=== PATIENT | male | born 1945 | race Caucasian/White ===

== ENCOUNTER 2017-08-24 23:12 | Observation (INO) | payer MEDICARE ==
[2017-08-25] MEDS ORDERED: Labetalol HCl 100 MG/20 ML VIAL ONE (01:47)
[2017-08-25 02:03] LABS: Troponin I 0.015 ng/mL (< 0.028)
[2017-08-25] MEDS ORDERED: Ondansetron HCl/PF 4 MG/2 ML Vial IVP PRN (03:07)
[2017-08-25] MEDS ORDERED: Ondansetron ODT 4 MG TAB SL PRN (03:07)
[2017-08-25] MEDS ORDERED: Sodium Chloride 0.9% 1,000 ML IV SCH (03:07)
[2017-08-25] MEDS: Acetaminophen 325 MG TAB PO PRN ×2 (04:20→11:57)
[2017-08-25 05:03] VITALS: BMI 22.0
[2017-08-25 05:06] LABS: Troponin I 0.012 ng/mL (< 0.028)
[2017-08-25] MEDS ORDERED: HYDROcodone/Acetaminophen 5/325 mg Tablet PO PRN (05:07)
[2017-08-25] MEDS ORDERED: Acetaminophen/Codeine 30-300mg Tablet PO PRN (05:08)
[2017-08-25] MEDS ORDERED: Cyclobenzaprine 10 MG TAB PO PRN (05:08)
--- NOTE | 2017-08-25 05:11 | PDOC.EVN ---
Event Note - Event Note Event Note: [id number] H&p dictated 1. falls 2. ENCEPHALOPATHY 3. h/o htn 4. dm type 2 plan: see orders
--- NOTE | 2017-08-25 06:59 | HP ---
DATE OF ADMISSION: 08/24/2017 CHIEF COMPLAINT: Altered mental status, history of falls. HISTORY OF PRESENT ILLNESS: The patient is a 72-year-old male with past medical history of polio, s troke, dementia, Parkinson's disease, diabetes mellitus type 2, hypertension, who came to outside ER because of the fall and confusion. History is obtained from the ER physician, ER notes and from th e patient's outside records as there is no family available at this time. According to them, the pa tient was having confusion for the past few days and patient was having falls also. The patient had a fall yesterday and did hit his head, but denies any loss of consciousness, denies any chest pain, denies any nausea, vomiting. Patient denies any chest pain, denies any trouble breathing. Patient went to outside ER, because of the worsening confusion. The patient was transferred here for neuro eval. Denies any chest pain, denies any dizziness at this time. PAST MEDICAL HISTORY: As per HPI. PAST SURGICAL HISTORY: Foot surgery, knee surgery, vasectomy. SOCIAL HISTORY: Denies smoking, denies alcohol, denies any drugs. FAMILY HISTORY: Denies any heart problems. REVIEW OF SYSTEMS: Constitutional: Denies any fever, denies any chills. Eyes: No vision problems. Ears: Denies any hearing loss. Neck: Denies any neck pain. Cardiovascular System: Denies any chest pain, denies any palpitations. Cranial Nerves System: Pos itive for confusion. Psychiatric: Denies depression, anxiety. Integument: Denies any rash. All other review of systems are reviewed and are negative. PHYSICAL EXAMINATION: CONSTITUTIONAL/VITAL SIGNS: At the time of H\T\P performed, blood pressure 130/70, 97% on room air. GENERAL: The patient appears tired. HEENT: Anterior nares patent. Nose normal. Ears normal. Teeth intact. Tongue is moist. NECK: Supple. No JVD. CARDIOVASCULAR SYSTEM: S1, S2 present. Regular rate and rhythm, no murmurs, no rubs, no gallops. RESPIRATORY SYSTEM: No wheezing, no rhonchi. Breath sounds bilaterally. GASTROINTESTINAL: Abdomen is soft, nontender, no guarding, no organomegaly, no masses felt. MUSCULOSKELETAL: No edema. INTEGUMENTARY: No rashes seen. CRANIAL NERVE SYSTEM: Awake, follows commands. Strength intact, sensory intact. PSYCHIATRIC: Mood appropriate at this time. LABORATORY DATA: At the time of H\T\P performed, sodium 140, potassium 4.3, chloride 103, CO2 23, B UN of 24, creatinine 0.8, glucose 289, AST 16, ALT 21, alkaline phosphatase 82, troponin less than 0 .010, CK-MB is 7.7. Urine, 7-10 RBCs. Urine casts present. seen. White count 7.6, hemoglob in 15.1, platelet count 255. ASSESSMENT AND PLAN: The patient is a 72-year-old male: 1. Falls, plan to check 25-hydroxy vitamin D and also we will get PT, OT, ST available. Monitor th e patient closely. 2. History of dementia plus encephalopathy, might be secondary to worsening dementia. We will get neuro evaluation and monitor the patient closely. We will get MRI brain also. 3. History of hypertension. Monitor blood pressure. Continue home blood pressure medications. 4. History of diabetes mellitus type 2. Monitor blood sugars. We will do insulin sliding scale. 5. History of dementia. Continue home medications. The case was discussed in detail with the patient.
[2017-08-25] MEDS ORDERED: Alogliptin Benzoate 25 MG TABLET PO SCH (09:00)
[2017-08-25] MEDS ORDERED: Aspirin 325 mg Enteric Coated Tablet PO SCH (09:00)
[2017-08-25] MEDS ORDERED: Amlodipine 5 MG TAB PO SCH (09:09)
[2017-08-25] MEDS ORDERED: Amlodipine 10 MG TAB PO SCH (09:15)
--- NOTE | 2017-08-25 09:15 | PDOC.PN ---
- Subjective Encounter Start Date: 08/25/17 Encounter Start Time: 09:13 Patient seen at bedside. No overnight events, no new complaints. - Objective MAR Reviewed: Yes Vital Signs & Weight: Vital Signs (12 hours) Temp Pulse Resp BP BP Pulse Ox 08/25/17 07:40 98.6 F 89 18 08/25/17 07:20 98.6 F 89 18 175/80 H 95 08/25/17 03:33 98.5 F 92 20 175/95 H 96 Weight Weight 167 lb 1.6 oz I&O: 08/24/17 08/25/17 08/26/17 06:59 06:59 06:59 Intake Total 940 Output Total 2 Balance 938 Phys Exam - Physical Examination Constitutional: NAD HEENT: moist MMs Neck: no JVD Respiratory: no rales, clear to auscultation bilateral Cardiovascular: RRR Gastrointestinal: soft Musculoskeletal: pulses present Neurological: moves all 4 limbs Psychiatric: A&O x 3 Deviation from normal: Flat affect Skin: no rash Dx/Plan (1) Falls Code(s): W19.XXXA - UNSPECIFIED FALL, INITIAL ENCOUNTER Status: Acute (2) Altered mental status Code(s): R41.82 - ALTERED MENTAL STATUS, UNSPECIFIED Status: Resolved (3) Hypertension Code(s): I10 - ESSENTIAL (PRIMARY) HYPERTENSION Status: Chronic (4) Dementia Code(s): F03.90 - UNSPECIFIED DEMENTIA WITHOUT BEHAVIORAL DISTURBANCE Status: Suspected Qualifiers: Dementia type: Alzheimer's disease - Plan cont current plan of care, PT/OT, social media coordinator, out of bed/ambulate, DVT proph w/SCDs * Increase Norvasc to 10 mg Daily. * D/C IV fluids * PT/OT * Altered Mental status has improved. This may be a manifestation of worsening of his underlying dementia. MRI pending.Neurology consult requested. * CM for safe disposition * Neuro checks
[2017-08-25] MEDS: Tamsulosin HCl 0.4 MG CAP PO SCH ×2 (09:52→20:59)
[2017-08-25] MEDS: Aspirin 81 mg Enteric Coated Tablet PO SCH (09:52)
[2017-08-25] MEDS: Glimepiride 2 MG TAB PO SCH (09:52)
[2017-08-25] MEDS: Famotidine 20 MG TAB PO SCH ×2 (09:52→21:00)
[2017-08-25] MEDS: Amlodipine 5 MG TAB PO SCH ×2 (09:53→09:55)
[2017-08-25] MEDS: Heparin 5,000 UNITS/ML VIAL SC SCH ×3 (10:00→21:01)
[2017-08-25] MEDS ORDERED: Bisacodyl 5 MG TAB PO PRN (17:39)
[2017-08-25] MEDS: Midodrine HCl 5 MG TAB PO SCH (20:59)
[2017-08-25] MEDS ORDERED: Donepezil HCl 5 MG TAB PO SCH (21:00)
[2017-08-25] MEDS: Sodium Chloride 0.9% 1,000 ML IV SCH (21:16)
--- NOTE | 2017-08-25 22:29 | CON ---
DATE OF CONSULTATION: 08/25/2017 CONSULTING PHYSICIAN: Hospitalist Service. IMPRESSION: 1. Orthostatic hypotension. 2. Parkinsonian-dementia complex. PLAN: 1. Midodrine 2.5 mg b.i.d. and monitor blood pressure. 2. Rehab transfer for monitoring and rehabilitation. HISTORY OF PRESENT ILLNESS: Mr. Arnett is a 72-year-old gentleman who was previously followed by Dr. Miramontes. He reportedly had a parkinsonian appearance and was treated with medications for an inte rval of time. These were discontinued sometime back. He has also had a history of cognitive declin e and has been on both Aricept and Namenda for this. He was admitted due to infrequent falling. Th e patient reports that he has a feeling of weakness while he is standing in his legs give way. He h as not lost consciousness. He was little sketchy on other details. He is without any complaints of chest pain or shortness of breath. PAST MEDICAL HISTORY: As listed above. ALLERGIES: None reported. SOCIAL HISTORY: He is and living at home with his . FAMILY HISTORY: Noncontributory. REVIEW OF SYSTEMS: Otherwise, negative. PHYSICAL EXAMINATION: GENERAL: He is a reasonably healthy appearing and well-nourished elderly gentleman, in no acute dis tress. HEENT: Pupils are equal. Conjunctivae are clear. He is somewhat of a masked facies, his blink tamica quency is diminished. NECK: Supple, no lymphadenopathy noted. EXTREMITIES: No cyanosis or edema. NEUROLOGIC: He was awake and cooperative. His speech was relatively monotone and low in volume. H e had some word finding difficulty. Cranial nerves were intact. He had a positive glabellar reflex . Motor exam showed antigravity strength in both the arms and legs. Tone was mildly increased bila terally with slight cogwheel rigidity. Rapid alternating movements were slowed somewhat. There was no rest tremor present. He could be brought to a standing position, but was very unstable. Sensat ion was grossly symmetric. IMAGING: EKG showed some PACs. VITAL SIGNS: Showed supine blood pressure of 160/90 and a standing blood pressure of 102/65. SUMMARY: This is an elderly man with parkinsonian dementia complex with orthostatic instability. M idodrine may be of some value, but it may be challenging to not create too much supine hypertension. Droxidopa is the new option for management of orthostatic hypotension that may be helpful as well. I would be happy to follow up in his care.
[2017-08-26 05:32] LABS: #Basophils 0.1 thou/uL (0.0-0.2); #Eosinphils 0.2 thou/uL (0.0-0.7); #Lymphocytes 2.5 thou/uL (1.20-3.40); #Monocytes 0.8 thou/uL (0.11-0.59); #Neutrophils 5.1 thou/uL (1.40-6.50); %Basophils 0.9 % (0.0-1.0); %Eosinophils 2.7 % (0.0-10.0); %Lymphocytes 28.6 % (21.0-51.0); %Monocytes 9.3 % (0.0-10.0); Hematocrit 45.2 % (42.0-52.0); Red Blood Cell (RBC) Count 4.64 mill/uL (4.70-6.10); White Blood Cell (WBC) Count 8.7 thou/uL (4.8-10.8)
[2017-08-26 05:51] LABS: Anion Gap 12 mmol/L (10-20); BUN (Urea Nitrogen) 10 mg/dL (8.4-25.7); Calc. Creatinine Clearance 105 mL/min (70-130); Calcium 9.1 mg/dL (7.8-10.44); Carbon Dioxide 25 mmol/L (23-31); Chloride 105 mmol/L (98-107); Estimated GFR-MDRD Greater than 90
[2017-08-26] MEDS: Midodrine HCl 5 MG TAB PO SCH (08:46)
[2017-08-26] MEDS: Heparin 5,000 UNITS/ML VIAL SC SCH ×2 (08:46→16:06)
[2017-08-26] MEDS: Aspirin 81 mg Enteric Coated Tablet PO SCH (08:46)
[2017-08-26] MEDS: Famotidine 20 MG TAB PO SCH (08:46)
[2017-08-26] MEDS: Glimepiride 2 MG TAB PO SCH (08:46)
[2017-08-26] MEDS: Tamsulosin HCl 0.4 MG CAP PO SCH (08:46)
[2017-08-26] MEDS ORDERED: Amlodipine 10 MG TAB PO SCH ×2 (09:00)
--- NOTE | 2017-08-26 09:41 | PDOC.PN ---
- Subjective Encounter Start Date: 08/26/17 Encounter Start Time: 09:00 Subjective: awake, responds slowly to verbal stimuli - Objective MAR Reviewed: Yes Vital Signs & Weight: Vital Signs (12 hours) Temp Pulse Resp BP BP Pulse Ox 08/26/17 08:46 91 08/26/17 08:05 97.1 F L 91 16 08/26/17 08:00 97.1 F L 98 16 160/102 H 98 08/26/17 04:10 97.9 F 91 18 169/93 H 97 08/25/17 23:25 98.8 F 87 16 160/114 H 93 L Weight Weight 164 lb 11.2 oz I&O: 08/25/17 08/26/17 08/27/17 06:59 06:59 06:59 Intake Total 940 2038 Output Total 2 Balance 938 2038 Result Diagrams: 08/26/17 05:23 08/26/17 05:23 Additional Labs: Accuchecks 08/26/17 08/25/17 08/25/17 05:23 20:31 17:22 POC Glucose 116 H 199 H 147 H Phys Exam - Physical Examination HEENT: PERRLA, sclera anicteric Neck: no JVD, supple Respiratory: no wheezing, no rales Cardiovascular: RRR, no significant murmur Gastrointestinal: soft, non-tender, positive bowel sounds Musculoskeletal: no edema, pulses present Neurological: non-focal, moves all 4 limbs Dx/Plan (1) Dysautonomia orthostatic hypotension syndrome Code(s): G90.3 - MULTI-SYSTEM DEGENERATION OF THE AUTONOMIC NERVOUS SYSTEM Status: Acute (2) Parkinson disease Code(s): G20 - PARKINSON'S DISEASE Status: Chronic (3) DM type 2 (diabetes mellitus, type 2) Status: Chronic Qualifiers: Diabetes mellitus complication status: with unspecified complications Diabetes mellitus care home insulin use: without care home use Qualified Code( s): E11.8 - Type 2 diabetes mellitus with unspecified complications (4) Falls Code(s): W19.XXXA - UNSPECIFIED FALL, INITIAL ENCOUNTER Status: Acute Qualifiers: Encounter type: subsequent encounter Qualified Code(s): W19.XXXD - Unspecified fall, subsequent encounter (5) Hypertension Code(s): I10 - ESSENTIAL (PRIMARY) HYPERTENSION Status: Chronic Qualifiers: Hypertension type: essential hypertension Qualified Code(s): I10 - Essential (primary) hypertension (6) Dementia Code(s): F03.90 - UNSPECIFIED DEMENTIA WITHOUT BEHAVIORAL DISTURBANCE Status: Chronic Qualifiers: Dementia type: unspecified type Dementia behavioral disturbance: without behavioral disturbance Qualified Code(s): F03.90 - Unspecified dementia without behavioral disturbance (7) Altered mental status Code(s): R41.82 - ALTERED MENTAL STATUS, UNSPECIFIED Status: Resolved - Plan hemo/neuro stable -: will not treat htn aggressively due to dysautonomia with +ve orthostasis -: on midodrine, norvasc and glimepride -: may dc to rehab if accepted -: PT/OT to mobilize more * . Review of Systems - Medications/Allergies Allergies/Adverse Reactions: Allergies Allergy/AdvReac Type Severity Reaction Status Date / Time No Known Allergies Allergy Verified 03/17/16 21:25 Medications: Current Medications Acetaminophen/Codeine Phosphate (Tylenol #3) 1 tab PO Q6H PRN PRN Reason: Mild-Moderate Pain (1-5) Last Admin: 08/26/17 00:28 Dose: 1 tab Hydrocodone Bitart/Acetaminophen ([place] 5/325) 1 tab PO Q4H PRN PRN Reason: Moderate Pain (4-6) Amlodipine Besylate (Norvasc) 10 mg PO DAILY [facility] Last Admin: 08/26/17 08:46 Dose: 10 mg Aspirin (Ecotrin) 81 mg PO DAILY [facility] Last Admin: 08/26/17 08:46 Dose: 81 mg Bisacodyl (Dulcolax) 10 mg PO DAILYPRN PRN PRN Reason: Constipation Cyclobenzaprine HCl (Flexeril) 10 mg PO TIDPRN PRN PRN Reason: Muscle Spasm Last Admin: 08/26/17 00:29 Dose: 10 mg Donepezil HCl (Aricept) 5 mg PO HS [facility] Last Admin: 08/25/17 21:00 Dose: 5 mg Famotidine (Pepcid) 20 mg PO BID [facility] Last Admin: 08/26/17 08:46 Dose: 20 mg Glimepiride (Amaryl) 2 mg PO QAM-WM [facility] Last Admin: 08/26/17 08:46 Dose: 2 mg Heparin Sodium (Porcine) (Heparin) 5,000 units SC TID [facility] Last Admin: 08/26/17 08:46 Dose: 5,000 units Sodium Chloride (Normal Saline 0.9%) 1,000 mls @ 70 mls/hr IV .[id number] [facility] Last Admin: 08/25/17 21:16 Dose: 1,000 mls Midodrine (Proamatine) 2.5 mg PO BID [facility] Last Admin: 08/26/17 08:46 Dose: 2.5 mg Sodium Chloride (Flush - Normal Saline) 10 ml IVF Q12HR [facility] Last Admin: 08/26/17 08:47 Dose: Not Given Sodium Chloride (Flush - Normal Saline) 10 ml IVF PRN PRN PRN Reason: Saline Flush Tamsulosin HCl (Flomax) 0.4 mg PO BID [facility] Last Admin: 08/26/17 08:46 Dose: 0.4 mg
[2017-08-26] MEDS: Sodium Chloride 0.9% 1,000 ML IV SCH (12:27)
[2017-08-26 12:33] VITALS: BP 112/68; TEMP 97.2
--- NOTE | 2017-08-27 00:44 | DIS ---
DATE OF ADMISSION: 08/25/2017 DATE OF DISCHARGE: 08/26/2017 DISCHARGE DISPOSITION: To inpatient rehabilitation. PRIMARY DISCHARGE DIAGNOSIS: Orthostatic hypotension secondary to dysautonomia. SECONDARY DISCHARGE DIAGNOSES: Parkinson's disease, history of falls, diabetes mellitus type 2, hypertension, dementia, altered mental status on admission, resolved, likely due to hypotension. PROCEDURES DONE DURING HOSPITALIZATION: CT brain done on 08/24/2017 showed no acute intracranial abnormalities. Lumbar spine x-ray done showed degenerative changes with severe compression of T12 vertebral body, likely old. Chest x-ray done showed no acute cardiopulmonary process. Blood cultures x2 no growth. Influenza A and B antigens were negative. Troponin x2 was negative. DISCHARGE MEDICATIONS: Aspirin 81 mg p.o. daily, vitamin B12 1000 mcg p.o. daily, glimepiride 2 mg p.o. daily, Namenda 10 mg p.o. q.a.m. and 5 mg p.o. at bedtime, midodrine 2.5 mg p.o. twice daily, multivitamin 1 tab once daily, Flomax 0.4 mg p.o. twice daily, vitamin B complex 1 tablet daily. ALLERGIES: No known drug allergies. INPATIENT CONSULTS: Dr. Keenan for Neurology. DISCHARGE PLAN: The patient is being discharged to inpatient rehabilitation. BRIEF COURSE DURING HOSPITALIZATION: The patient got admitted with history of falls and altered mental state. He has had multiple imaging studies done, which did not show any acute changes. The patient was found to be hypotensive. The patient has history of Parkinson's disease and had consultation with Dr. Keenan. The patient's orthostatic hypotension, likely is due to dysautonomia with Parkinson's dementia complex. He was placed on midodrine to help with supine hypotension. He has remained hemodynamically stable and has been participating with physical therapy. He has been accepted to inpatient rehab and will be shortly discharged. Total of 35 minutes was spent on discharge. Please see a face to face documentation on [facility] for the day of discharge. [facility]
--- OUTSIDE RECORDS SUMMARY | 2017-08-30 11:09 | XMS | Clinical Summary ---
:1945 Author Organization [facility] Address [address] [place] [address] Phone Care Team Providers Name Role Phone , Primary Care Provider Unavailable Allergies No Known Allergies Current Medications Prescription Sig. Disp. Refills Start Date End Date Status multivitamin per tablet Take 1 tablet by Active mouth daily. melatonin 10 mg Tab Take 10 mg by Active mouth nightly. b complex vitamins tablet Take 1 tablet by Active mouth daily. aspirin 81 MG EC tablet Take 81 mg by Active mouth daily. hydrochlorothiazide Take 12.5 mg by Active (HYDRODIURIL) 12.5 MG mouth daily. tablet tamsulosin (FLOMAX) 0.4 mg Take 0.4 mg by Active Cp24 24 hr capsule mouth daily. donepezil (ARICEPT) 10 MG Take 10 mg by Active tablet mouth nightly. metFORMIN (GLUCOPHAGE) 1000 Take 1,000 mg by Active MG tablet mouth 2 (two) times daily with breakfast and dinner. glimepiride (AMARYL) 1 MG Take 1 mg by Active tablet mouth every morning before breakfast. Active Problems Problem Noted Date Convulsions/seizures (HCC) 09/13/2016 Social History Tobacco Use Types Packs/Day Years Used Date Unknown If Ever Smoked Sex Assigned at Date Recorded Not on file Last Filed Vital Signs Vital Sign Reading Time Taken Blood Pressure 119/69 09/17/2016 11:00 AM HOSPICE EDUCATOR Pulse 75 09/17/2016 11:00 AM HOSPICE EDUCATOR Temperature 36.2 C (97.2 F) 09/17/2016 11:00 AM HOSPICE EDUCATOR Respiratory Rate 20 09/17/2016 11:00 AM HOSPICE EDUCATOR Oxygen Saturation 94% 09/17/2016 11:00 AM HOSPICE EDUCATOR Inhaled Oxygen Concentration - - Weight 78.2 kg (172 lb 4.8 oz) 09/13/2016 11:00 AM HOSPICE EDUCATOR Height 182.9 cm (6') 09/13/2016 11:00 AM HOSPICE EDUCATOR Body Mass Index 23.37 09/13/2016 11:00 AM HOSPICE EDUCATOR Plan of Treatment Not on file Results Not on filefrom Last 3 Months Advance Directives Patient has advance directives. For more information, please contact:[address] [phone]
== END 2017-08-26 16:30 ==
LOC: ERS 23:12 → 2SW 08-25 00:45 → 2SE 08-25 12:04
PROVIDERS: ADMIT Internal Medicine; ATTEND Internal Medicine
DX: I95.1 Orthostatic hypotension (principal); E11.9 Type 2 diabetes mellitus without complications; G20 Parkinson's disease; F03.90 Unspecified dementia, unspecified severity, without behavioral disturbance, psychotic disturbance, mood disturbance, and anxiety; I10 Essential (primary) hypertension; Z79.82 Long term (current) use of aspirin; Z79.84 Long term (current) use of oral hypoglycemic drugs; Z79.899 Other long term (current) drug therapy; Z98.52 Vasectomy status; Z98.890 Other specified postprocedural states; Z91.81 History of falling
CPT/HCPCS: 80048; 82306; 82607; 82962 ×2; 83735; 84443; 84484 ×2; 85025; 96361 ×2; 96374; 97110; 97116; 97139 ×3; 97530 ×2; 98960; 99285; G0378; G8978; G8979; G8987; G8988; 36415; 36416; A4216; J1644

== ENCOUNTER 2018-02-03 03:48 | Observation (INO) | payer MEDICARE ==
[2018-02-03 05:40] LABS: CKMB 3.9 ng/mL (0-6.6); Troponin I Less than 0.010 ng/mL (< 0.028)
[2018-02-03] MEDS ORDERED: Regadenoson 0.4 MG/5 ML SYRINGE ONE (07:24)
--- NOTE | 2018-02-03 08:42 | ULT ---
PRELIMINARY REPORT/[facility]/EMERGENCY AFTER HOURS PROCEDURE: EXAM: US Duplex Bilateral Lower Extremity Veins CLINICAL HISTORY: 72 years old, male; Pain and signs and symptoms; Edema, localized; Lower extremity, bilateral; Leg, upper and leg, lower TECHNIQUE: Real-time duplex ultrasound scan of the bilateral lower extremity veins integrating Bmode two-dimensional vascular structure, Doppler spectral analysis, color flow Doppler imaging and sujit breezy. COMPARISON: No relevant prior studies available. FINDINGS: Right deep veins: Unremarkable. No DVT in the right common femoral, femoral, proximal deep femoral or popliteal veins. The veins demonstrate normal color flow, are normally compressible, with normal pha sic flow and/or augmentation response. Right superficial veins: Unremarkable. No thrombus in the visualized right great saphenous vein. Left deep veins: Unremarkable. No DVT in the left common femoral, femoral, proximal deep femoral or p opliteal veins. The veins demonstrate normal color flow, are normally compressible, with normal phasi c flow and/or augmentation response. Left superficial veins: Unremarkable. No thrombus in the visualized left great saphenous vein. Soft tissues: Nonspecific soft tissue edema. No popliteal cyst. IMPRESSION: - Negative for DVT. Thank you for allowing us to participate in the care of your patient. Dictated and Authenticated by: Toni Mcclendon MD 02/03/2018 6:19 AM Central Time ([place] & [place]) FINAL REPORT BILATERAL LOWER EXTREMITY VENOUS DOPPLER ULTRASOUND: Date: 02/03/18 FINDINGS/IMPRESSION: I agree with the preliminary report given by Dr. Toni Mcclendon of [facility]. POS: [facility]
[2018-02-03 08:58] VITALS: BMI 29.2
[2018-02-03] MEDS ORDERED: Dextrose 5% in Water 1,000 ML IV PRN (09:04)
[2018-02-03] MEDS ORDERED: HYDROcodone/Acetaminophen 10/325 mg Tablet PO PRN (09:04)
[2018-02-03] MEDS ORDERED: Acetaminophen 325 MG TAB PO PRN (09:04)
[2018-02-03] MEDS ORDERED: HYDROcodone/Acetaminophen 5/325 mg Tablet PO PRN (09:04)
[2018-02-03] MEDS ORDERED: Dextrose 50% Abboject 50 ML SYRINGE SLOW IVP PRN (09:04)
[2018-02-03] MEDS ORDERED: Ondansetron ODT 4 MG TAB SL PRN (09:15)
[2018-02-03] MEDS ORDERED: Ondansetron HCl/PF 4 MG/2 ML Vial IVP PRN (09:15)
[2018-02-03] MEDS ORDERED: Enoxaparin Sodium 40 MG/0.4 ML SYRINGE SC SCH (09:15)
[2018-02-03 09:17] LABS: #Eosinphils 0.4 thou/uL (0.0-0.7); #Lymphocytes 1.4 thou/uL (1.20-3.40); #Monocytes 0.8 thou/uL (0.11-0.59); #Neutrophils 3.9 thou/uL (1.40-6.50); %Basophils 0.7 % (0.0-1.0); %Eosinophils 6.4 % (0.0-10.0); %Lymphocytes 21.6 % (21.0-51.0); %Monocytes 12.3 % (0.0-10.0); Hemoglobin 11.8 g/dL (14.0-18.0); Mean Corpuscular HGB CONC 32.5 g/dL (32.0-36.0); Mean Corpuscular Hemoglobin 29.7 pg (27.0-31.0); Mean Corpuscular Volume 91.6 fl (80.0-94.0); Mean Platelet Volume 6.5 fL (7.4-10.4); Platelet Count 256 thou/uL (130-400); RBC Distribution Width 12.4 % (11.5-14.5); Red Blood Cell (RBC) Count 3.96 mill/uL (4.70-6.10); White Blood Cell (WBC) Count 6.6 thou/uL (4.8-10.8)
[2018-02-03 09:20] LABS: Troponin I Less than 0.010 ng/mL (< 0.028)
[2018-02-03 09:30] LABS: Cardiac Risk 1.9 (Less than 4.5); Cholesterol 103 mg/dl (< 200 Desired); HDL Cholesterol 53 mg/dL (>60 Neg Risk); LDL Cholesterol, Calculated 46 mg/dL; Triglycerides 21 mg/dL (Less than 150)
[2018-02-03 10:12] LABS: Chloride 108 mmol/L (98-107); Sodium 138 mmol/L (136-145)
[2018-02-03 10:13] LABS: Calcium 8.7 mg/dL (7.8-10.44); Glucose 162 mg/dL (83-110); Magnesium 2.2 mg/dL (1.6-2.6)
[2018-02-03 10:15] LABS: Anion Gap 12 mmol/L (10-20); Carbon Dioxide 22 mmol/L (23-31)
[2018-02-03 10:17] LABS: Calc. Creatinine Clearance 125 mL/min (70-130); Estimated GFR-MDRD Greater than 90
[2018-02-03 10:18] LABS: BUN (Urea Nitrogen) 19 mg/dL (8.4-25.7)
[2018-02-03 16:28] LABS: Troponin I Less than 0.010 ng/mL (< 0.028)
[2018-02-03] MEDS ORDERED: Ipratropium Bromide 2.5 ml Neb NEB PRN (16:45)
[2018-02-03] MEDS ORDERED: Polyethylene Glycol 3350 17 GM Packet PO PRN (16:45)
--- NOTE | 2018-02-03 16:48 | NM ---
NUCLEAR MEDICINE CARDIAC STRESS TEST WITH EJECTION FRACTION: 02/03/18 HISTORY: Chest pain, hypertension, diabetes. COMPARISON: CT angiogram prior day. TECHNIQUE: Stress and rest performed after the intravenous administration of 31.7 and 9.7 millicuries technetium 99m Sestamibi, respectively. There is a small scar at the left ventricular apex. Remainder of the left ventricle without scar or i schemia. Normal wall motion. The ejection fraction is calculated at 60%. IMPRESSION: Small left ventricular scar. No ischemia. Normal wall motion. POS: [facility]
[2018-02-03] MEDS: HumaLOG 300 UNITS/3 ML VIAL SC PRN (18:20)
[2018-02-03] MEDS: Labetalol HCl 100 MG/20 ML VIAL SLOW IVP PRN (18:21)
[2018-02-03] MEDS: Mometasone/Formoterol 120 PUFF INHALER INH SCH (19:18)
[2018-02-03] MEDS: Famotidine 20 MG TAB PO SCH (19:21)
[2018-02-03] MEDS ORDERED: Tamsulosin HCl 0.4 MG CAP PO SCH (21:00)
[2018-02-03] MEDS ORDERED: Donepezil HCl 10 MG TAB PO SCH (21:00)
[2018-02-03] MEDS: Nitroglycerin 2% Ointment 1 INCH/1 GM Packet TOP SCH (21:19)
[2018-02-04] MEDS: Nitroglycerin 2% Ointment 1 INCH/1 GM Packet TOP SCH ×2 (05:10→14:57)
[2018-02-04] MEDS: Mometasone/Formoterol 120 PUFF INHALER INH SCH (06:38)
[2018-02-04] MEDS ORDERED: Glimepiride 2 MG TAB PO SCH (08:00)
[2018-02-04] MEDS ORDERED: Carvedilol 6.25 MG TAB PO SCH ×2 (08:15→17:00)
[2018-02-04] MEDS ORDERED: Amlodipine 10 MG TAB PO SCH (09:00)
[2018-02-04] MEDS ORDERED: Aspirin 81 mg Enteric Coated Tablet PO SCH (09:00)
[2018-02-04] MEDS: Famotidine 20 MG TAB PO SCH (09:04)
[2018-02-04] MEDS ORDERED: Furosemide 40 MG/4 ML VIAL SLOW IVP SCH (11:00)
[2018-02-04] MEDS: HumaLOG 300 UNITS/3 ML VIAL SC PRN (11:56)
[2018-02-04 16:20] VITALS: TEMP 97.8
[2018-02-04 16:45] VITALS: BP 178/77
[2018-02-04] MEDS: Labetalol HCl 100 MG/20 ML VIAL SLOW IVP PRN (16:45)
--- NOTE | 2018-02-05 17:01 | DIS ---
DATE OF ADMISSION: 02/03/2018 DATE OF DISCHARGE: 02/04/2018 DISCHARGE DIAGNOSES: 1. Chest pain. 2. Bilateral lower extremity edema. 3. Parkinson's disease. 4. Diabetes mellitus type 2 without mention complications. 5. Essential hypertension. 6. Dyspnea. 7. History of dysautonomia orthostatic hypotension syndrome secondary to his Parkinson's. CONSULTATIONS: None. PROCEDURES: Echocardiogram on 02/04/2018 that showed an EF of 50% to 55%, poorly visualized left ventricle, impai red relaxation compatible with diastolic dysfunction and technically inadequate exam with considerati on of repeat. HOSPITAL COURSE: Mr. Arnett is a 72-year-old male, who was a resident of [facility] in [place], who was sent to the emergency department for evaluation of chest pain an d shoulder pain with some shortness of breath. There, he had a CT angiogram that was negative. The right upper extremity ultrasound was negative fo r DVT and he had negative troponin. He was subsequently sent to our emergency department in transfer for admission and evaluation. HOSPITAL COURSE: On arrival to our ER, the second set of enzymes was negative. Dr. Dixon and was the doctors gas station operator accepted the patient for admission and was held over for me to complete [facility]. On my arrival, the patient was having discomfort in his legs secondary to swelling with no furth er chest pain. His breathing was okay. He is actually lying flat on one pillow. He denies any naus ea or vomiting. No fevers or chills. No cough or sputum production. The patient was placed in observation. He was given a dose of Lasix. Serial cardiac biomarkers obta ined were completed that had 3 negative sets. The patient underwent nuclear stress test and overall had no further symptoms and was watched overnight. On 02/04/2018, he was feeling stable. Edema was better. He was given a second dose of Lasix with go od results. A stress test results showed a small left ventricular scar, but no ischemia, normal wall motion, EF of 60% and no reversible defects. Later in the day on 02/04/2018, he was feeling better after diuresis and was stable for discharge wit h outpatient followup. Echocardiogram was obtained and results were pending until this dictation. PHYSICAL EXAMINATION: The patient was seen and examined on the day of discharge. Discharge plan and disposition was discussed with the patient and his face to face at the bedside. DISCHARGE MEDICATIONS: 1. Aspirin 650 mg daily. 2. Amlodipine 10 mg daily. 3. Aspirin 81 mg daily. 4. Budesonide/formoterol 160/4.5 two puffs b.i.d. 5. Carvedilol 6.25 mg p.o. b.i.d., new medication. 6. Vitamin B12 of 1000 mcg daily. 7. Donepezil 10 mg p.o. at bedtime. 8. Famotidine 20 mg p.o. b.i.d. 9. Lasix 20 mg p.o. q.a.m., new prescription. 10. Glimepiride 2 mg p.o. q.a.m. with meals. 11. Insulin to continue at his regular dose. 12. DuoNeb 0.5/2.5 one vial inhaled every 4 hours as needed for cough, shortness of breath or wheezi ng. 13. Memantine 10 mg p.o. b.i.d. 14. Midodrine 2.5 mg p.o. b.i.d. 15. Multivitamin 1 tablet daily. 16. MiraLax 17 grams daily. 17. Flomax 0.8 mg p.o. at bedtime. DISCHARGE ACTIVITY: As tolerated per cardiopulmonary limits. DISCHARGE DIET: Heart healthy diabetic diet recommended. DISCHARGE CONDITION: Stable. DISPOSITION: Being transferred back to [facility] in [place].
--- NOTE | 2018-02-06 08:17 | HP ---
DATE OF ADMISSION: 02/03/2018 PRIMARY CARE PHYSICIAN: Dr. Bernardino Phillips M.D. CHIEF COMPLAINT: Shortness of breath and left shoulder pain. HISTORY OF PRESENT ILLNESS: Mr. Arnett is a pleasant 72-year-old white male with history of BPH, moe ntia, diabetes, COPD, asthma, GERD, and hypertension, who presented to the [facility] for onset of chest pain and shoulder pain with some shortness of breath. The patient has developed a right greater than left lower extremity edema over the last several days. He developed a sharp chest pain, presented with left chest and some dizziness. He describes as a s pinning sensation that was short-lived. Does have history of Parkinson disease and dementia. Workup in the [facility] was unremarkable with negative troponins and he was subsequ ently sent here for further workup and evaluation. He had an ultrasound of the upper extremity for t he shoulder pain, it was negative for DVT and a CT angiogram of the chest that was negative for pulmo nary embolus. On arrival here, a repeat set of cardiac biomarker was negative. We were subsequently called for adm it. On my visit, the patient was complaining of discomfort in his lower extremities and increased heat an d a relatively new onset edema. He has no other complaints. PAST MEDICAL HISTORY: 1. Benign prostatic hypertrophy. 2. Dementia. 3. Diabetes mellitus type 2. 4. Parkinson's disease. 5. COPD or Asthma. 6. Gastroesophageal reflux disease. 7. Hypertension. PAST SURGICAL HISTORY: Include, 1. Total knee arthroplasty x1. 2. Vasectomy. 3. Left foot surgery. HOME MEDICATIONS: 1. Amlodipine 10 mg daily. 2. Aspirin 81 mg daily. 3. Donepezil 10 mg p.o. at bedtime. 4. Pepcid 20 mg p.o. b.i.d. 5. Glimepiride 2 mg p.o. daily. 6. Memantine 10 mg p.o. b.i.d. 7. Midodrine 2.5 mg daily. 8. Flomax 0.4 mg p.o. at bedtime. 9. Vitamin B12 1000 mcg daily. 10. Symbicort 160/4.5 one puff b.i.d. 11. Regular insulin sliding scale. ALLERGIES: NKDA. FAMILY HISTORY: Negative for clotting or bleeding disorder. No immune dysfunction. No premature co ronary disease. SOCIAL HISTORY: He has never past tobacco. He smoked about 20 years, but quit 15 years ago. REVIEW OF SYSTEMS: A 10-point review of systems was performed and is negative for all systems except as stated as per HPI. PHYSICAL EXAMINATION: VITAL SIGNS: Temperature 98.7, pulse of 84, blood pressure is 126/69, respiratory rate 18, saturatin g 95% on room air on arrival. GENERAL: He is awake. He is alert. He is oriented x3, well-developed, well-nourished, white male w ho appears to be in zero distress. HEENT: Normocephalic, atraumatic. Pupils equal, round, react to light bilaterally. Mucosa membrane s moist. No visible lesions. No thrush. NECK: Supple. There is no lymphadenopathy, no JVD and no thyromegaly. LUNGS: Clear to auscultation bilaterally without wheezes, rales or rhonchi. Good air movement. Sym metrical chest excursion. There is no prolonged expiratory phase. CARDIOVASCULAR: He has normal cardiac and regular. Normal S1, S2. No S3 or S4. I do not appreciat e murmurs. ABDOMEN: Soft, is nontender, nondistended. No masses or organomegaly. EXTREMITIES: No cyanosis, no clubbing with 2+ lower extremity edema to the level of the knee or so. SKIN: Otherwise, warm, moist, and well perfuse, no other rashes or lesions. MUSCULOSKELETAL: Normal to inspection. Right joints appear inflamed. There is no palpable effusion s. He has good range of motion. NEUROLOGIC: Cranial nerves II-XII grossly intact. He has no focal neurologic deficits. No tremors. He has 5/5 strength in all 4 of his extremities. No sensory defects. PSYCHIATRIC: He has normal speech pattern. LABORATORY DATA: Sodium 142, potassium 4.1, chloride 109, bicarbonate 24, BUN 26, creatinine 0.83, g lucose of 241. Liver function within normal limits. CBC showed a white count of 7.1, hemoglobin 12.5, hematocrit is 36.9, platelet count is 255,000. CK-MB initially was 5.1, is now currently 3.9. Troponin I was les s than 0.010 x2 and BNP is 47.7. RADIOGRAPHIC STUDIES: Chest x-ray showed no acute cardiopulmonary disease. CT angiogram showed no evidence of pulmonary embolus. Ultrasound of the upper extremity on the right showed no evidence of DVT. ASSESSMENT AND PLAN: 1. Chest pain and swelling. We will get serial cardiac biomarkers, 2D echocardiogram and a nuclear stress test. If these are negative, we will let him go home with outpatient followup. If there are any abnormalities, we will call Cardiology for evaluation. 2. Lower extremity edema, this is new for him. He does have a history of COPD which certainly could contribute to a right-sided heart failure and cor pulmonale. We will follow up on the echo findings . In the meantime, we will give him a dose of Lasix and monitor his response. She was placed in obs ervation on the observations floor. 3. Benign prostatic hypertrophy. We will continue his Flomax. 4. History of dementia, on donepezil. 5. History of diabetes mellitus type 2, diet controlled. We will continue q.i.d. a.c. and at bedtim e Accu-Cheks and sliding scale insulin. 6. History of probable chronic obstructive pulmonary disease, on Symbicort. We will continue. Hist ory ERD disease on Pepcid 20 b.i.d. We will continue. 7. Hypertension, on amlodipine. rotation Linden Arnett.
== END 2018-02-04 19:11 ==
LOC: ERS 03:48 → 2SW 06:36
PROVIDERS: ADMIT Family Medicine; ATTEND Family Medicine
DX: R07.9 Chest pain, unspecified (principal); R60.0 Localized edema; G20 Parkinson's disease; F02.80 Dementia in other diseases classified elsewhere, unspecified severity, without behavioral disturbance, psychotic disturbance, mood disturbance, and anxiety; I95.89 Other hypotension; E11.9 Type 2 diabetes mellitus without complications; I10 Essential (primary) hypertension; N40.0 Benign prostatic hyperplasia without lower urinary tract symptoms; J44.9 Chronic obstructive pulmonary disease, unspecified; K21.9 Gastro-esophageal reflux disease without esophagitis; Z79.82 Long term (current) use of aspirin; Z79.4 Long term (current) use of insulin; Z79.899 Other long term (current) drug therapy; Z87.891 Personal history of nicotine dependence
CPT/HCPCS: 78452; 80048; 80061; 82553; 82962 ×2; 83735; 84484 ×2; 85025; 93005; 93017; 93306; 93970; 94640 ×2; 96372; 96374; 96375; 96376; 99285; A9500; G0378; 36415; 36416; A4216; J1650; J1940; J2785; J7644

== ENCOUNTER 2018-05-07 18:25 | Emergency (ER) | payer MEDICARE ==
[2018-05-07] MEDS ORDERED: traMADol HCl 50 MG TAB ONE (20:45)
[2018-05-07] MEDS ORDERED: Lidocaine 1% PF 5 ML VIAL ONE (21:24)
[2018-05-07] MEDS ORDERED: cefTRIAXone\\ROCEPHIN 1 GM VIAL ONE (21:24)
--- NOTE | 2018-05-07 22:36 | ULT ---
LEFT LOWER EXTREMITY VENOUS ULTRASOUND WITH DOPPLER: HISTORY: Left lower extremity erythema. Swelling. Edema. COMPARISON: None. TECHNIQUE: Pearce-scale, color-flow, and Doppler imaging with spectral wave-form analysis was performed of the lef t lower extremity venous system. FINDINGS: There is compressibility, presence of flow, and augmentation in the common femoral vein, femoral vein , and popliteal vein. There is flow in the greater saphenous vein, profunda vein, posterior tibial v ein, and anterior tibial vein. IMPRESSION: No evidence of thrombus in the left lower extremity deep venous system. POS: [facility]
== END 2018-05-07 21:57 | disposition home or self-care (01) ==
LOC: ERS 18:25
DX: L03.116 Cellulitis of left lower limb (principal); E11.9 Type 2 diabetes mellitus without complications; I10 Essential (primary) hypertension; Z87.891 Personal history of nicotine dependence; N40.0 Benign prostatic hyperplasia without lower urinary tract symptoms; G20 Parkinson's disease; F02.80 Dementia in other diseases classified elsewhere, unspecified severity, without behavioral disturbance, psychotic disturbance, mood disturbance, and anxiety; Z79.82 Long term (current) use of aspirin; Z79.899 Other long term (current) drug therapy; Z79.4 Long term (current) use of insulin
CPT/HCPCS: 96372; J0696; J2001

== ENCOUNTER 2018-06-07 11:43 | Inpatient (IN) | payer MEDICARE ==
[~2018-06-07 11:43] MED LIST: ISOVUE-370 76%-LOCM 1 ML ONE
--- NOTE | 2018-06-07 11:56 | CT ---
NONCONTRAST HEAD CT: Date: 06/07/18 COMPARISON: 04/16/18. HISTORY: Left-sided weakness. FINDINGS: No parenchymal hemorrhage or extra-axial hematoma. No midline shift. Basilar cisterns are patent. Age -appropriate atrophy. Cortical cortez-white matter differentiation is preserved. Ventricles and sulci a re patent and symmetric. Stable hypodensities of the white matter due to chronic small vessel ischemic change. Remote lacunar infarct on the anterior right deep cortez matter structures is once again demonstrated. Calvarium is intact. Adequate aeration of the sinuses and mastoid air cells. Cavernous carotid athero sclerosis is noted. IMPRESSION: No acute intracranial process. Results of study discussed with Dr. Bettencourt on 06/07/18 at 1151 hours. CODE CR. POS: [facility]
[2018-06-07 12:14] LABS: #Eosinphils 0.2 thou/uL (0.0-0.7); #Monocytes 0.6 thou/uL (0.11-0.59); #Neutrophils 4.7 thou/uL (1.40-6.50); %Basophils 0.4 % (0.0-1.0); %Eosinophils 2.7 % (0.0-10.0); %Lymphocytes 26.5 % (21.0-51.0); %Monocytes 7.7 % (0.0-10.0); %Neutrophils 62.7 % (42.0-75.0); Hemoglobin 14.7 g/dL (14.0-18.0); Mean Corpuscular HGB CONC 34.4 g/dL (32.0-36.0); Mean Corpuscular Hemoglobin 31.6 pg (27.0-31.0); Mean Corpuscular Volume 91.7 fL (78.0-98.0); Mean Platelet Volume 6.8 fL (7.4-10.4); Platelet Count 189 thou/uL (130-400); RBC Distribution Width 13.2 % (11.5-14.5); Red Blood Cell (RBC) Count 4.64 mill/uL (4.70-6.10); White Blood Cell (WBC) Count 7.5 thou/uL (4.8-10.8)
[2018-06-07 12:21] LABS: INR-International Normal Ratio 1.1; Prothrombin Time 14.3 SEC (12.0-14.7)
[2018-06-07 12:22] LABS: PTT 33.5 SEC (22.9-36.1)
[2018-06-07 12:35] LABS: ALT (SGPT) 52 U/L (8-55); AST (SGOT) 29 U/L (5-34); Albumin 3.8 g/dL (3.4-4.8); Alkaline Phosphatase 92 U/L (40-150); Anion Gap 13 mmol/L (10-20); BUN (Urea Nitrogen) 13 mg/dL (8.4-25.7); Bilirubin, Total 0.7 mg/dL (0.2-1.2); CK (CPK) 60 U/L (30-200); Calc. Creatinine Clearance 0 mL/min (70-130); Calcium 8.8 mg/dL (7.8-10.44); Carbon Dioxide 23 mmol/L (23-31); Chloride 104 mmol/L (98-107); Estimated GFR-MDRD Greater than 90; Globulin 3.2 g/dL (2.4-3.5); Glucose 178 mg/dL (83-110); Potassium 4.7 mmol/L (3.5-5.1); Sodium 135 mmol/L (136-145)
--- NOTE | 2018-06-07 12:36 | CT ---
CT ANGIOGRAM HEAD WITH CONTRAST: CT ANGIOGRAM NECK WITH CONTRAST: HISTORY: Code stroke. Last seen normal last night. Left-sided facial droop. TECHNIQUE: CT angiogram head and neck performed after the intravenous administration of contrast, with 3D render ing provided. FINDINGS: Mild scarring in the lung apices. No suspicious mass. Moderate degenerative changes of the cervical spine. VESSELS: Mild atherosclerotic plaque of the aorta. RIGHT SIDE: Vertebral artery is patent. No significant stenosis. Basilar artery is patent. The common carotid origin is patent. Moderate atherosclerotic plaque of the carotid bulb and proxima l internal carotid artery. Using NASCET criteria, there is no hemodynamically significant stenosis. LEFT SIDE: Vertebral artery is patent. Vertebral arteries are codominant. The common carotid origin is patent. Mild atherosclerotic plaque of the carotid bulb and proximal in ternal carotid artery. Using NASCET criteria, no hemodynamically significant stenosis. The [place] is intact. There is a dominant right posterior communicating artery seen in the right posterior cerebral artery. The left posterior cerebral artery is fed mainly by the posterior circulation. IMPRESSION: 1. No focal intracranial [place], stenosis, thrombosis, or aneurysm formation. 2 No hemodynamically significant stenosis of the internal carotid artery using NASCET criteria. The re is a focal area of approximately 50% stenosis of the right internal carotid artery, at the level o f C2, which can be due to soft plaque. Findings called to ER physician at 12:07 p.m. HERMES BOOGIE POS: [facility]
[2018-06-07 12:38] LABS: CKMB 2.6 ng/mL (0-6.6)
[2018-06-07 12:46] LABS: Troponin I Less than 0.010 ng/mL (< 0.028)
[2018-06-07] MEDS ORDERED: Acetaminophen 325 MG TAB PO PRN (16:01)
[2018-06-07] MEDS ORDERED: Ondansetron HCl/PF 4 MG/2 ML Vial IVP PRN ×3 (16:01→16:23)
[2018-06-07] MEDS ORDERED: Ondansetron ODT 4 MG TAB SL PRN (16:01)
[2018-06-07] MEDS ORDERED: Diabetic Tussin 200 MG/10 ML UDCUP PO PRN (16:23)
[2018-06-07] MEDS ORDERED: Mag-Al 1200 mg/1200 mg/30 ML UDCUP PO PRN (16:23)
[2018-06-07] MEDS ORDERED: hydrALAZINE 20 MG/ML VIAL SLOW IVP PRN (16:23)
[2018-06-07] MEDS ORDERED: traMADol HCl 50 MG TAB PO PRN ×2 (16:23→18:03)
[2018-06-07] MEDS ORDERED: Bisacodyl 5 MG TAB PO PRN ×2 (16:23)
[2018-06-07] MEDS ORDERED: cloNIDine 0.1 MG TAB PO PRN (16:23)
[2018-06-07] MEDS ORDERED: Diphenoxylate HCl/Atropine Tablet PO PRN (16:23)
[2018-06-07] MEDS ORDERED: Benzonatate 100 MG CAP PO PRN (16:23)
[2018-06-07] MEDS ORDERED: Senokot 8.6 MG TAB PO PRN ×2 (16:23)
[2018-06-07] MEDS ORDERED: Pepto Bismol Chew TAB PO PRN (16:23)
[2018-06-07] MEDS ORDERED: Calcium Carbonate 500 MG ChewTAB PO PRN (16:23)
[2018-06-07 16:33] VITALS: BMI 27.0
[2018-06-07] MEDS ORDERED: Insulin Regular 300 UNITS/3 ML VIAL SC PRN (16:38)
[2018-06-07] MEDS ORDERED: Dextrose 50% Abboject 50 ML SYRINGE IVP PRN (16:38)
[2018-06-07] MEDS ORDERED: Dextrose 5% in Water 1,000 ML IV PRN (16:38)
[2018-06-07] MEDS ORDERED: Polyethylene Glycol 3350 17 GM Packet PO PRN (18:03)
[2018-06-07] MEDS ORDERED: Milk Of Magnesia 30 ML UDCUP PO PRN (18:03)
--- NOTE | 2018-06-07 19:17 | HP ---
DATE OF ADMISSION: 06/07/2018 PRIMARY CARE PHYSICIAN: Bernardino Phillips M.D. CHIEF COMPLAINT: Altered mental status, aphasia and facial droop. HISTORY OF PRESENT ILLNESS: Mr. 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 He has past medical histor y of multiple TIAs and used to follow up with Neurology, Dr. Miramontes in the past. He also has histo ry of Parkinson's as well as dementia, diabetes, GERD, hypertension, and BPH. History is mainly obta ined by discussion with his , Ms. Allen, who is also his medical power of defense attorney. The patient is still a little bit confused and slow to respond. Electronic medical records have been reviewed a nd the case has been discussed with admitting ER physician. The patient was recently admitted here in 02/2018 for chest pain and underwent workup including nucle ar medicine stress test as well as CT angiogram and cardiac echo. All of the workup was essentially unremarkable. The stress test results did show a small left ventricular scar, but no ischemia, ricky l wall motion and EF of 60% without any reversible defect. According to his , the correction called her this morning as the patient was found unresponsive . Normally, he is bedbound or wheelchair bound but he is otherwise awake, alert, oriented x3 at his baseline mental status. He was brought in to the emergency room via air for stroke-like symptoms enedina t was noticed about 6:30 this morning. According to the correction, the patient fell yesterday and lately he has been having some increased frequent falls. He has been having neuro checks frequently since his fall. He was last seen normal last night. When the correction staff found him, he was unresponsive, aphasic and some left facial droop was noticed. When he was brought to the emergency r oom, he was nonverbal with weakness in both upper extremities without any focal weakness. Eventually , he started to come around and all of his symptoms resolved and his mental status returned to baseli ne. Please note that he does have some baseline left-sided weakness with his history of polio. Upon presentation to the emergency room, his blood pressure was 180/95 with a pulse of 77, but he was otherwise hemodynamically stable. His workup included a CT scan of the brain which was negative for any evidence of hemorrhage or acute infarction. He underwent a CT angiogram of the head and neck wh ich did not show any significant stenosis or plaque. He does have mild focal area of 50% stenosis in the right internal carotid artery at the level of C2, which can be due to a soft block. His blood w ork was essentially unremarkable. He was given aspirin in the emergency room and is now being admitt ed with possible ulcer with a presumptive diagnosis of acute ischemic CVA. CODE STATUS: Do not resuscitate or intubate. This has been discussed with his medical power of atto willanastacio, his , Ms. Allen. PAST MEDICAL HISTORY: 1. History of transient ischemic attacks in the past. 2. Parkinson's. 3. Dementia. 4. GERD. 5. Hypertension. 6. Benign prostatic hypertrophy. 7. Diabetes mellitus type 2, non-insulin dependent. 8. Chronic obstructive pulmonary disease or asthma. PAST SURGICAL HISTORY: 1. Total knee arthroplasty. 2. Vasectomy. 3. Left foot surgery. ALLERGIES: No known medication allergies. FAMILY HISTORY: Significant for multiple family members with significant stroke. His father at the age of 50 with a massive stroke and his mother later with a massive stroke as well. No history of coronary artery disease. 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 There is no hi story of drug, tobacco or alcohol abuse. CURRENT HOME MEDICATIONS: As follows, Flomax 0.8 mg at bedtime, Depakote 250 mg daily, Exelon patch daily, Ultram q.i.d. p.r.n., Coreg 6.25 p.o. b.i.d., aspirin 81 mg daily, Norvasc 10 mg daily, Tyleno l p.r.n., glimepiride 2 mg in the morning, Lasix 20 mg in the morning, famotidine 20 mg b.i.d., vitam in B12 of 1000 mcg daily, MiraLax 17 grams p.r.n., multivitamin daily, midodrine 2.5 mg p.o. b.i.d., Namenda 10 mg p.o. b.i.d., and Milk of Magnesia p.r.n. REVIEW OF SYSTEMS: Difficult to obtain as the patient is still slow to respond and somewhat confused , but overall he feels better. He denies any difficulty with his speech or swallowing at this time. He denies any recent illnesses. No nausea, vomiting, diarrhea, abdominal pain. No dysuria, frequen cy, urgency, hematuria. No hematochezia, melena or hematemesis. LABORATORY DATA: CBC is unremarkable. PT, PTT, INR is within normal limits. Serum chemistries show sodium of 135, blood sugar 178, otherwise unremarkable. Cardiac enzymes are normal. CT scan of the brain by my review has no evidence to suggest any acute hemorrhage or infarction. CT angiogram of t he head and neck as above per the radiologist. Twelve lead EKG by my review shows sinus rhythm with some PVCs, heart rate 73 beats per minute. PHYSICAL EXAMINATION: VITAL SIGNS: Temperature 98.8, pulse of 70, respirations 16, saturating 98% on room air, blood press ure 144/80. GENERAL: No acute distress, awake, alert, oriented x3, though still a little bit slow to respond, bu t he is making jokes already. HEENT: Mucous membrane is moist and pink. No oropharyngeal exudate or erythema. Head is normocepha lic, atraumatic. Pupils equal, reactive to light and accommodation. Extraocular movement intact. NECK: Supple without any lymphadenopathy, JVD or bruit. CHEST: Clear to auscultation without any wheezing, rales or rhonchi. HEART: Rate and rhythm is regular without any murmur, rubs or gallops. ABDOMEN: Soft, nontender, nondistended with positive bowel sounds. EXTREMITIES: Free of any cyanosis, clubbing, or edema. NEUROLOGIC: Shows significant weakness in both lower extremities. He is not able to lift either of his leg against gravity and is able to barely move them with the gravity. His left upper extremity s trength is at least 4/5. No sensory deficits. Cranial nerves II-XII grossly intact. No facial droo p is noted. No slurred speech. He is oriented x3 at this time SKIN: Free of any rashes or new bruises. I feel warm and dry to touch. PSYCHIATRIC: Normal affect. IMPRESSION AND PLAN: 1. Aphasia and altered mental status with facial droop. The probable diagnosis at this time is acut e ischemic cerebrovascular accident. The patient has multiple risk factors. We will put him on [facility] floor as a full admission. We will consult Neurology as well as Stroke team. We will start him o n full dose aspirin as well as statin and check lipid panel. His echocardiogram was done just few mo nths ago and was unremarkable. CT angio of the neck is negative as well as a CT angio of the lower [place]. We will obtain an MRI of the brain, as soon as possible. He will be on neuro checks, fal l and aspiration precautions. He has been cleared by bedside swallow for regular food and we will st art him on heart healthy diet. We will hold his antihypertensives for now to allow for permissive hy pertension. Add p.r.n. antihypertensives with parameters to maintain cerebral perfusion pressure. 2. Benign prostatic hypertrophy. Continue with Flomax. 3. History of dementia. Continue with Namenda and ProAmatine. 4. History of diabetes mellitus type 2. At this time, we will hold the metformin to avoid any acido sis or renal failure and put him on insulin sliding scale with frequent Accu-Cheks. 5. History of hypertension as above. Hold amlodipine and Coreg for now. 6. Code status: DO NOT RESUSCITATE, DO NOT INTUBATE as above. Discussed with the MPOA . 7. Deep venous thrombosis and gastrointestinal prophylaxis and pain medication and supportive and sy mptomatic care. DISPOSITION: Mr. Arnett is currently being admitted to the hospital with acute CVA like symptoms for further workup. Estimated length of stay at this time is at least 2-3 midnights. Further management will depend upon his clinical course.
[2018-06-07] MEDS ORDERED: Famotidine 20 MG TAB PO SCH (21:00)
[2018-06-07] MEDS: Tamsulosin HCl 0.4 MG CAP PO SCH (22:04)
[2018-06-07] MEDS: Midodrine HCl 5 MG TAB PO SCH (22:05)
[2018-06-07] MEDS: Famotidine 20 MG TAB PO SCH (22:06)
[2018-06-07] MEDS: Simvastatin 20 MG TAB PO SCH (22:07)
--- NOTE | 2018-06-08 04:49 | CON ---
DATE OF CONSULTATION: 06/07/2018 REFERRING PROVIDER: Dr. Kristen Yang. REASON FOR CONSULTATION: Altered mental status. HISTORY OF PRESENT ILLNESS: Mr. Arnett is a pleasant 73-year-old male who has been consulte d for evaluation of altered mental status. History is limited as patient is unable to provide and th ere are no family members present at bedside, thus most of the history is obtained from patient's ER medical records. Apparently, the patient is a resident of a snf. He was brought by EMS aft er he was noted to have left-sided facial droop and aphasia by snf staff, he had fell yester day and they were performing neuro checks on him, he was last seen normal last night. This morning o n their routine checkup, they noticed the patient was nonverbal. He was having left facial droop and weakness in both upper extremities, thus he was transferred to [facility] for further evaluation. Past medical history, past surgical history, family history, social history, current medications, all ergies are unknown. REVIEW OF SYSTEMS: Unable to perform. PHYSICAL EXAMINATION: VITAL SIGNS: Blood pressure of 144/80, pulse of 70, temperature of 98.8, respirations of 16, O2 sats 98% on room air. GENERAL: Well-developed, well-nourished male in no apparent distress. RESPIRATORY: Clear to auscultation bilaterally. CARDIOVASCULAR: Regular rate and rhythm. NEUROLOGIC: Mental status: Patient is awake, alert, and oriented x1. He was able to state his name and age. He was able to state that he is in [place]; however, unable to state current month or year o r day. He is able to follow some simple commands. Speech and language appears fluent. Cranial nerv es: Pupils are 3 mm and reactive. Visual newsome are full to threat. External muscles are intact. Face is symmetric. Tongue and uvula are midline. Motor exam showed normal tone and bulk with 5/5 st rength in both upper extremities. Sensory: Sensation is intact and symmetric. Deep tendon reflexes 1+ reflexes in both upper and lower extremities. Babinski: Plantar responses flexion bilaterally. Coordination intact to [id number] on both sides. LABORATORY DATA: Reviewed, which included CBC, coag panel, CMP, which is significant for glucose of 178. Sodium 135, otherwise unremarkable. IMAGING STUDIES: CT head without contrast was reviewed, which showed no acute intracranial abnormali ty. CT angiogram of the head and neck were reviewed, which showed no hemodynamically significant avery nosis. There was a focal area of stenosis measuring about 50% on the right internal carotid artery a t the level of C2. IMPRESSION: 1. Altered mental status, likely toxic metabolic encephalopathy. 2. Facial droop and upper extremity weakness, could be secondary to encephalopathy versus transient ischemic attack. PLAN: Mr. Arnett is a pleasant 73-year-old male who presented with the acute onset of left facial droop and bilateral lower extremity weakness. On exam, I do not appreciate any facial droop n either any weakness in upper extremities. He is noted to be somewhat confused and disoriented, which may be due to toxic metabolic encephalopathy. At this time, I will recommend obtaining urinalysis, urine culture, MRI brain without contrast. If MRI brain is negative for acute ischemic event, patien t needs to manage medically. The patient can be discharged to a snf once he is medically st able. Thank you for consultation.
[2018-06-08 05:02] LABS: #Eosinphils 0.2 thou/uL (0.0-0.7); #Lymphocytes 2.1 thou/uL (1.20-3.40); #Monocytes 0.6 thou/uL (0.11-0.59); #Neutrophils 2.9 thou/uL (1.40-6.50); %Basophils 0.6 % (0.0-1.0); %Eosinophils 2.9 % (0.0-10.0); %Monocytes 9.4 % (0.0-10.0); %Neutrophils 50.1 % (42.0-75.0); Hemoglobin 13.4 g/dL (14.0-18.0); Mean Corpuscular HGB CONC 33.2 g/dL (32.0-36.0); Mean Corpuscular Hemoglobin 30.1 pg (27.0-31.0); Mean Corpuscular Volume 90.5 fL (78.0-98.0); Mean Platelet Volume 7.1 fL (7.4-10.4); Platelet Count 189 thou/uL (130-400); RBC Distribution Width 13.2 % (11.5-14.5); Red Blood Cell (RBC) Count 4.46 mill/uL (4.70-6.10); White Blood Cell (WBC) Count 5.8 thou/uL (4.8-10.8)
[2018-06-08 05:22] LABS: Anion Gap 12 mmol/L (10-20); BUN (Urea Nitrogen) 12 mg/dL (8.4-25.7); Calc. Creatinine Clearance 120 mL/min (70-130); Carbon Dioxide 24 mmol/L (23-31); Cardiac Risk 2.2 (Less than 4.5); Chloride 104 mmol/L (98-107); Cholesterol 99 mg/dl (< 200 Desired); Estimated GFR-MDRD Greater than 90; Glucose 118 mg/dL (83-110); HDL Cholesterol 46 mg/dL (>60 Neg Risk); LDL Cholesterol, Calculated 40 mg/dL; Sodium 136 mmol/L (136-145); Triglycerides 67 mg/dL (Less than 150)
[2018-06-08] MEDS: Multivit, Therapeutic 1 TAB PO SCH (09:03)
[2018-06-08] MEDS: Enoxaparin Sodium 40 MG/0.4 ML SYRINGE SC SCH (09:03)
[2018-06-08] MEDS: Divalproex Sodium 250 MG (DR) TAB PO SCH (09:03)
[2018-06-08] MEDS: Famotidine 20 MG TAB PO SCH ×2 (09:03→21:04)
[2018-06-08] MEDS: Glimepiride 2 MG TAB PO SCH (09:03)
[2018-06-08] MEDS: Aspirin 325 mg Enteric Coated Tablet PO SCH (09:03)
[2018-06-08] MEDS: Cyanocobalamin (Vitamin B-12) 1,000 MCG TAB PO SCH (09:04)
[2018-06-08] MEDS: Furosemide 20 MG TAB PO SCH (09:04)
[2018-06-08] MEDS: Midodrine HCl 5 MG TAB PO SCH ×2 (09:09→21:05)
[2018-06-08 10:03] LABS: Bilirubin Negative (Negative); Blood, Urine Negative (Negative); Clarity CLEAR (Clear); Glucose, Urine (Dipstick) Negative (Negative); Leukocyte Negative (Negative); Nitrite Negative (Negative); Protein, Urine (Dipstick) Negative (Neg-Trace); Specific Gravity, Urine 1.011 (1.002-1.036); Urobilinogen 0.2 mg/dL (0.2-1.0); pH, Urine 7.5 (5.0-9.0)
[2018-06-08] MEDS: Rivastigmine 9.5mg/24 Hour PATCH TOP SCH (11:55)
--- NOTE | 2018-06-08 11:57 | MRI ---
BRAIN MRI WITH AND WITHOUT CONTRAST: INDICATIONS: A 73-year-old male with generalized weakness and CVA. FINDINGS: There is mild age-related parenchymal volume loss with compensatory dilatation of the ventricular sys tem. Moderate chronic ischemic disease of the bilateral cerebral white matter is present. There is no acute territorial infarction. There is no evidence of intracranial hemorrhagic susceptibility. N o enhancing intraaxial lesion. The imaged central skull base flow voids are grossly patent. IMPRESSION: 1. No evidence of acute intracranial abnormality. 2. No pathologic intraaxial enhancement. 3. Redemonstration of moderate chronic ischemic disease, including cavitary lacunar infarctions. POS: [facility]
--- NOTE | 2018-06-08 14:25 | PDOC.PN ---
- Subjective Encounter Start Date: 06/08/18 Encounter Start Time: 14:23 Subjective: feels better. no new complaints for now - Objective Resuscitation Status: Resuscitation Status DNR:Do Not Resuscitate MAR Reviewed: Yes Vital Signs & Weight: Vital Signs (12 hours) Temp Pulse Pulse Pulse Resp BP BP 06/08/18 12:00 98 F 65 16 06/08/18 09:25 99 F 63 14 06/08/18 09:13 64 66 152/80 H 152/80 H 06/08/18 07:32 99 F 63 14 06/08/18 04:26 98.7 F 64 16 BP Pulse Ox 06/08/18 12:00 119/71 94 L 06/08/18 09:25 95 06/08/18 09:13 06/08/18 07:32 135/84 95 06/08/18 04:26 153/85 H 94 L I&O: 06/07/18 06/08/18 06/09/18 06:59 06:59 06:59 Intake Total 420 Balance 420 Result Diagrams: 06/08/18 04:23 06/08/18 04:23 Additional Labs: Accuchecks 06/07/18 16:55 POC Glucose 130 H Laboratory Tests 06/08/18 04:23 Triglycerides 67 Cholesterol 99 LDL Cholesterol, Calc 40 HDL Cholesterol 46 labs reviewed Radiology Reviewed by me: Yes (MRI-No Acute CVA) Phys Exam - Physical Examination Constitutional: NAD HEENT: PERRLA, moist MMs, sclera anicteric, oral pharynx no lesions Neck: no nodes, no JVD, supple, full ROM Respiratory: no wheezing, no rales, no rhonchi, clear to auscultation bilateral Cardiovascular: RRR, no significant murmur, no rub Gastrointestinal: soft, non-tender, no distention, positive bowel sounds Musculoskeletal: no edema, pulses present Neurological: non-focal, normal sensation, moves all 4 limbs Psychiatric: normal affect, A&O x 3 Skin: no rash Dx/Plan (1) Toxic metabolic encephalopathy Code(s): G92 - TOXIC ENCEPHALOPATHY Status: Acute (2) DM type 2 (diabetes mellitus, type 2) Status: Chronic Qualifiers: Diabetes mellitus usp insulin use: without terminal block assembler use Diabetes mellitus complication status: with unspecified complications Qualified Code(s) : E11.8 - Type 2 diabetes mellitus with unspecified complications (3) Dementia Code(s): F03.90 - UNSPECIFIED DEMENTIA WITHOUT BEHAVIORAL DISTURBANCE Status: Chronic Qualifiers: Dementia type: unspecified type Dementia behavioral disturbance: without behavioral disturbance Qualified Code(s): F03.90 - Unspecified dementia without behavioral disturbance (4) Hypertension Code(s): I10 - ESSENTIAL (PRIMARY) HYPERTENSION Status: Chronic Qualifiers: Hypertension type: essential hypertension Qualified Code(s): I10 - Essential (primary) hypertension (5) Parkinson disease Code(s): G20 - PARKINSON'S DISEASE Status: Chronic - Plan PT/OT, social media director, DVT proph w/SCDs no evidence of ac CVA.cont home doses of ASA.cont statin given Carotid palq -: UA WNL-no evidence of infection -: Mentation back to baseline. -: await final neurology recs -: HD stable.cont home meds as below * . Review of Systems - Review of Systems Constitutional: negative: fever, chills, sweats, weakness, malaise, other ENT: negative: Ear Pain, Ear Discharge, Nose Pain, Nose Discharge, Nose Congestion, Mouth Pain, Mouth Swelling, Throat Pain, Throat Swelling, Other Respiratory: negative: Cough, Dry, Shortness of Breath, Hemoptysis, SOB with Excertion, Pleuritic Pain, Sputum, Wheezing Cardiovascular: negative: chest pain, palpitations, orthopnea, paroxysmal nocturnal dyspnea, edema, light headedness, other Gastrointestinal: negative: Nausea, Vomiting, Abdominal Pain, Diarrhea, Constipation, Melena, Hematochezia, Other Musculoskeletal: negative: Neck Pain, Shoulder Pain, Arm Pain, Back Pain, Hand Pain, Leg Pain, Foot Pain, Other Neurological: negative: Weakness, Numbness, Incoordination, Change in Speech, Confusion, Seizures, Other - Medications/Allergies Allergies/Adverse Reactions: Allergies Allergy/AdvReac Type Severity Reaction Status Date / Time No Known Allergies Allergy Verified 03/17/16 21:25 Medications: Current Medications Acetaminophen (Tylenol) 650 mg PO Q4H PRN PRN Reason: Headache/Fever or Pain Al Hydroxide/Mg Hydroxide (Maalox) 30 ml PO Q6H PRN PRN Reason: Heartburn or Indigestion Aspirin (Ecotrin) 325 mg PO DAILY [facility] Last Admin: 06/08/18 09:03 Dose: 325 mg Benzonatate (Tessalon) 100 mg PO Q4H PRN PRN Reason: Cough Bisacodyl (Dulcolax) 10 mg PO DAILYPRN PRN PRN Reason: Constipation Bismuth Subsalicylate (Pepto Bismol) 2 tab PO Q1H PRN PRN Reason: Diarrhea/Loose Stools Calcium Carbonate (Tums) 1,000 mg PO Q4H PRN PRN Reason: Heartburn or Indigestion Clonidine (Catapres) 0.1 mg PO Q4H PRN PRN Reason: Systolic BP > 160 Cyanocobalamin (Vitamin B-12) 1,000 mcg PO DAILY [facility] Last Admin: 06/08/18 09:04 Dose: 1,000 mcg Dextrose/Water (Dextrose 50%) 25 gm IVP PRN PRN PRN Reason: HYPOGLYCEMIA PROTOCOL Diphenoxylate HCl/Atropine (Lomotil) 1 tab PO QIDPRN PRN PRN Reason: Diarrhea/Loose Stools Divalproex Sodium (Depakote) 250 mg PO DAILY [facility] Last Admin: 06/08/18 09:03 Dose: 250 mg Enoxaparin Sodium (Lovenox) 40 mg SC 0900 [facility] Last Admin: 06/08/18 09:03 Dose: 40 mg Famotidine (Pepcid) 20 mg PO BID [facility] Last Admin: 06/08/18 09:03 Dose: 20 mg Furosemide (Lasix) 20 mg PO [facility] Last Admin: 06/08/18 09:04 Dose: 20 mg Glimepiride (Amaryl) 2 mg PO [facility] Last Admin: 06/08/18 09:03 Dose: 2 mg Glucagon (Glucagon) 1 mg IM PRN PRN PRN Reason: HYPOGLYCEMIA PROTOCOL Guaifenesin (Robitussin Sf) 200 mg PO Q4H PRN PRN Reason: Cough Hydralazine HCl (Apresoline) 10 mg SLOW IVP Q4H PRN PRN Reason: Systolic BP > 170 Dextrose/Water (D5w) 1,000 mls @ 0 mls/hr IV INF PRN; As Directed PRN Reason: HYPOGLYCEMIA PROTOCOL Insulin Human Regular (Humulin R) 0 units SC .MILD SLIDING PRN; Protocol PRN Reason: MILD SLIDING SCALE Insulin Human Regular (Humulin R) 0 units SC .BEDTIME SLIDING SC PRN; Protocol PRN Reason: BEDTIME SLIDING SCALE Magnesium Hydroxide (Milk Of Magnesium) 30 ml PO DAILY PRN PRN Reason: Constipation Memantine (Namenda) 10 mg PO BID [facility] Last Admin: 06/08/18 09:04 Dose: 10 mg Midodrine (Proamatine) 2.5 mg PO BID [facility] Last Admin: 06/08/18 09:09 Dose: 2.5 mg Multivitamins (Theragran) 1 tab PO DAILY [facility] Last Admin: 06/08/18 09:03 Dose: 1 tab Ondansetron HCl (Zofran) 4 mg IVP Q6H PRN PRN Reason: Nausea/Vomiting Polyethylene Glycol (Miralax) 17 gm PO DAILY PRN PRN Reason: Constipation Rivastigmine (Exelon Patch) 9.5 mg TOP DAILY [facility] Last Admin: 06/08/18 11:55 Dose: 9.5 mg Senna (Senokot) 2 tab PO HSPRN PRN PRN Reason: Constipation Simvastatin (Zocor) 20 mg PO HS [facility] Last Admin: 06/07/18 22:07 Dose: 20 mg Tamsulosin HCl (Flomax) 0.8 mg PO [facility] Last Admin: 06/07/18 22:04 Dose: 0.8 mg Tramadol HCl (Ultram) 50 mg PO QIDPRN PRN PRN Reason: Moderate Pain (4-6)
[2018-06-08] MEDS: Tamsulosin HCl 0.4 MG CAP PO SCH (21:03)
[2018-06-08] MEDS: Simvastatin 20 MG TAB PO SCH (21:03)
[2018-06-09] MEDS: Midodrine HCl 5 MG TAB PO SCH ×2 (08:54→22:27)
[2018-06-09] MEDS: Cyanocobalamin (Vitamin B-12) 1,000 MCG TAB PO SCH (08:54)
[2018-06-09] MEDS: Famotidine 20 MG TAB PO SCH ×2 (08:54→22:27)
[2018-06-09] MEDS: Aspirin 325 mg Enteric Coated Tablet PO SCH (08:54)
[2018-06-09] MEDS: Glimepiride 2 MG TAB PO SCH (08:54)
[2018-06-09] MEDS: Enoxaparin Sodium 40 MG/0.4 ML SYRINGE SC SCH (08:55)
[2018-06-09] MEDS: Multivit, Therapeutic 1 TAB PO SCH (08:55)
[2018-06-09] MEDS: Rivastigmine 9.5mg/24 Hour PATCH TOP SCH (08:55)
[2018-06-09] MEDS: Furosemide 20 MG TAB PO SCH (08:55)
[2018-06-09] MEDS: Divalproex Sodium 250 MG (DR) TAB PO SCH (08:55)
[2018-06-09] MEDS ORDERED: Amlodipine 10 MG TAB PO SCH (09:30)
[2018-06-09 10:32] LABS: #Eosinphils 0.2 thou/uL (0.0-0.7); #Lymphocytes 1.8 thou/uL (1.20-3.40); #Monocytes 0.5 thou/uL (0.11-0.59); #Neutrophils 3.2 thou/uL (1.40-6.50); %Basophils 0.6 % (0.0-1.0); %Eosinophils 2.7 % (0.0-10.0); %Lymphocytes 30.8 % (21.0-51.0); %Monocytes 9.3 % (0.0-10.0); %Neutrophils 56.5 % (42.0-75.0); Hemoglobin 15.3 g/dL (14.0-18.0); Mean Corpuscular Hemoglobin 30.8 pg (27.0-31.0); Mean Corpuscular Volume 90.7 fL (78.0-98.0); Mean Platelet Volume 7.1 fL (7.4-10.4); Platelet Count 185 thou/uL (130-400); RBC Distribution Width 13.3 % (11.5-14.5); Red Blood Cell (RBC) Count 4.96 mill/uL (4.70-6.10); White Blood Cell (WBC) Count 5.7 thou/uL (4.8-10.8)
[2018-06-09 10:39] LABS: INR-International Normal Ratio 1.1; PTT 34.5 SEC (22.9-36.1)
[2018-06-09 10:48] LABS: ALT (SGPT) 44 U/L (8-55); AST (SGOT) 23 U/L (5-34); Alkaline Phosphatase 101 U/L (40-150); Anion Gap 15 mmol/L (10-20); BUN (Urea Nitrogen) 13 mg/dL (8.4-25.7); Bilirubin, Total 0.7 mg/dL (0.2-1.2); Calc. Creatinine Clearance 104 mL/min (70-130); Carbon Dioxide 22 mmol/L (23-31); Chloride 104 mmol/L (98-107); Estimated GFR-MDRD Greater than 90; Globulin 3.3 g/dL (2.4-3.5); Glucose 158 mg/dL (83-110); Potassium 4.3 mmol/L (3.5-5.1); Protein, Total 7.3 g/dL (5.8-8.1); Sodium 137 mmol/L (136-145)
[2018-06-09 10:48] LABS: Amphetamine Not Detected (NotDetected); Barbiturates Screen Not Detected (NotDetected); Benzodiazepine Screen Not Detected (NotDetected); Cocaine Metabolite Screen Not Detected (NotDetected); Medtox Control Line Valid? VALID (VALID); Medtox Reader # READER 1; Methadone Not Detected (NotDetected); Methamphetamine Not Detected (NotDetected); Opiate Screen Not Detected (NotDetected); Oxycodone Screen Not Detected (NotDetected); Phencyclidine (PCP) Not Detected (NotDetected); THC/Cannabinoid Screen Not Detected (NotDetected); Tricyclic Screen Not Detected (NotDetected)
[2018-06-09 10:49] LABS: CKMB 1.6 ng/mL (0-6.6); Troponin I Less than 0.010 ng/mL (< 0.028)
--- NOTE | 2018-06-09 13:20 | CT ---
CT BRAIN NONCONTRAST: 06/08/2018 HISTORY: A 73-year-old male with dysarthria and altered mental status. Dr. Frederick gave STAT report for the stroke alert protocol scan to Dr. Yang at 10:07 a.m. on 8. FINDINGS: There is no midline shift or any other mass effect. There is no evidence of acute intracranial hemor rhage, large cortical infarct, obstructive hydrocephalus, or extraaxial fluid collection. The calvar ium is intact. There is diffuse parenchymal volume loss. There are low attenuation areas in the whi te matter. These are nonspecific, but in a patient of this age, they are probably chronic ischemic w edward matter changes due to microvascular atherosclerosis. There are tiny focal hypodensities, consis tent with old lacunar infarctions, one at the right caudate head and the other in the right basal willis glia. There is no interval change overall since 06/07/2018. IMPRESSION: 1) No acute intracranial findings. 2) Involutional changes and chronic ischemic white matter changes. 3) Tiny old lacunar infarctions in the right caudate nucleus and right basal ganglia. CODE CR jn [] POS: PRADEEP
--- NOTE | 2018-06-09 14:25 | PDOC.PN ---
- Subjective Encounter Start Date: 06/09/18 Encounter Start Time: 14:23 Subjective: Code yudith called for Changes in neuro status -: pt seen & examined.awake but not responding,non conversant -: flaccid all over.sluggish. - Objective Resuscitation Status: Resuscitation Status DNR:Do Not Resuscitate MAR Reviewed: Yes Vital Signs & Weight: Vital Signs (12 hours) Temp Pulse Pulse Pulse Pulse Resp Resp 06/09/18 11:37 98.7 F 67 18 06/09/18 11:00 64 06/09/18 09:45 98.7 F 67 16 06/09/18 09:42 67 66 77 16 06/09/18 08:54 98.7 F 67 18 06/09/18 07:32 98.7 F 64 18 06/09/18 04:00 98.2 F 61 18 Resp Resp BP BP BP BP Pulse Ox 06/09/18 11:37 134/77 95 06/09/18 11:00 06/09/18 09:45 133/81 95 06/09/18 09:42 16 16 133/81 160/92 H 176/99 H 06/09/18 08:54 95 06/09/18 07:32 177/80 H 94 L 06/09/18 04:00 143/78 H 93 L Pulse Ox Pulse Ox 06/09/18 11:37 06/09/18 11:00 06/09/18 09:45 06/09/18 09:42 95 95 06/09/18 08:54 06/09/18 07:32 06/09/18 04:00 I&O: 06/08/18 06/09/18 06/10/18 06:59 06:59 06:59 Intake Total 420 Balance 420 Result Diagrams: 06/09/18 10:21 06/09/18 10:21 Additional Labs: Accuchecks 06/09/18 06/09/18 06/08/18 09:48 05:33 20:36 POC Glucose 141 H 109 166 H 06/08/18 16:56 POC Glucose 90 Radiology Reviewed by me: Yes (Stat brain CT-no acute changes) Phys Exam - Physical Examination Constitutional: NAD awake but would not respond to verbal stimuli HEENT: PERRLA, moist MMs, sclera anicteric, oral pharynx no lesions tracks with eyes OK Neck: no nodes, no JVD, supple, full ROM Respiratory: no wheezing, no rales, no rhonchi, clear to auscultation bilateral Cardiovascular: RRR, no significant murmur Gastrointestinal: soft, non-tender, no distention, positive bowel sounds Musculoskeletal: no edema, pulses present aphsia,falccid,not responding Skin: no rash Dx/Plan (1) Toxic metabolic encephalopathy Code(s): G92 - TOXIC ENCEPHALOPATHY Status: Acute Comment: mo Stroke on MRI (2) DM type 2 (diabetes mellitus, type 2) Status: Chronic Qualifiers: Diabetes mellitus alf insulin use: without roasterman use Diabetes mellitus complication status: with unspecified complications Qualified Code(s) : E11.8 - Type 2 diabetes mellitus with unspecified complications (3) Dementia Code(s): F03.90 - UNSPECIFIED DEMENTIA WITHOUT BEHAVIORAL DISTURBANCE Status: Chronic Qualifiers: Dementia type: unspecified type Dementia behavioral disturbance: without behavioral disturbance Qualified Code(s): F03.90 - Unspecified dementia without behavioral disturbance (4) Hypertension Code(s): I10 - ESSENTIAL (PRIMARY) HYPERTENSION Status: Chronic Qualifiers: Hypertension type: essential hypertension Qualified Code(s): I10 - Essential (primary) hypertension (5) Parkinson disease Code(s): G20 - PARKINSON'S DISEASE Status: Chronic - Plan DVT proph w/SCDs No clear etiology for ac changes in mentation.? seizures -: will notify Dr. Urias. -: symptoms have improved since i last saw pt per nursing -: check Mag as he has some NSVT on monitor -: BP high-restart Coreg,norvasc * .cont neuro checks. * cont ASA,statin Review of Systems - Review of Systems Other: can not be obtained due to ac encephalopathy - Medications/Allergies Allergies/Adverse Reactions: Allergies Allergy/AdvReac Type Severity Reaction Status Date / Time No Known Allergies Allergy Verified 03/17/16 21:25 Medications: Current Medications Acetaminophen (Tylenol) 650 mg PO Q4H PRN PRN Reason: Headache/Fever or Pain Al Hydroxide/Mg Hydroxide (Maalox) 30 ml PO Q6H PRN PRN Reason: Heartburn or Indigestion Amlodipine Besylate (Norvasc) 10 mg PO DAILY [facility] Aspirin (Ecotrin) 325 mg PO DAILY [facility] Last Admin: 06/09/18 08:54 Dose: 325 mg Benzonatate (Tessalon) 100 mg PO Q4H PRN PRN Reason: Cough Bisacodyl (Dulcolax) 10 mg PO DAILYPRN PRN PRN Reason: Constipation Bismuth Subsalicylate (Pepto Bismol) 2 tab PO Q1H PRN PRN Reason: Diarrhea/Loose Stools Calcium Carbonate (Tums) 1,000 mg PO Q4H PRN PRN Reason: Heartburn or Indigestion [facility] Clonidine (Catapres) 0.1 mg PO Q4H PRN PRN Reason: Systolic BP > 160 Cyanocobalamin (Vitamin B-12) 1,000 mcg PO DAILY [facility] Last Admin: 06/09/18 08:54 Dose: 1,000 mcg Dextrose/Water (Dextrose 50%) 25 gm IVP PRN PRN PRN Reason: HYPOGLYCEMIA PROTOCOL Diphenoxylate HCl/Atropine (Lomotil) 1 tab PO QIDPRN PRN PRN Reason: Diarrhea/Loose Stools Divalproex Sodium (Depakote) 250 mg PO DAILY [facility] Last Admin: 06/09/18 08:55 Dose: 250 mg Enoxaparin Sodium (Lovenox) 40 mg SC 0900 [facility] Last Admin: 06/09/18 08:55 Dose: 40 mg Famotidine (Pepcid) 20 mg PO BID [facility] Last Admin: 06/09/18 08:54 Dose: 20 mg Furosemide (Lasix) 20 mg PO [facility] Last Admin: 06/09/18 08:55 Dose: 20 mg Glimepiride (Amaryl) 2 mg PO [facility] Last Admin: 06/09/18 08:54 Dose: 2 mg Glucagon (Glucagon) 1 mg IM PRN PRN PRN Reason: HYPOGLYCEMIA PROTOCOL Guaifenesin (Robitussin Sf) 200 mg PO Q4H PRN PRN Reason: Cough Hydralazine HCl (Apresoline) 10 mg SLOW IVP Q4H PRN PRN Reason: Systolic BP > 170 Dextrose/Water (D5w) 1,000 mls @ 0 mls/hr IV INF PRN; As Directed PRN Reason: HYPOGLYCEMIA PROTOCOL Insulin Human Regular (Humulin R) 0 units SC .MILD SLIDING PRN; Protocol PRN Reason: MILD SLIDING SCALE Insulin Human Regular (Humulin R) 0 units SC .BEDTIME SLIDING SC PRN; Protocol PRN Reason: BEDTIME SLIDING SCALE Magnesium Hydroxide (Milk Of Magnesium) 30 ml PO DAILY PRN PRN Reason: Constipation Memantine (Namenda) 10 mg PO BID [facility] Last Admin: 06/09/18 08:55 Dose: 10 mg Midodrine (Proamatine) 2.5 mg PO BID [facility] Last Admin: 06/09/18 08:54 Dose: 2.5 mg Multivitamins (Theragran) 1 tab PO DAILY [facility] Last Admin: 06/09/18 08:55 Dose: 1 tab Ondansetron HCl (Zofran) 4 mg IVP Q6H PRN PRN Reason: Nausea/Vomiting Polyethylene Glycol (Miralax) 17 gm PO DAILY PRN PRN Reason: Constipation Rivastigmine (Exelon Patch) 9.5 mg TOP DAILY [facility] Last Admin: 06/09/18 08:55 Dose: 9.5 mg Senna (Senokot) 2 tab PO HSPRN PRN PRN Reason: Constipation Simvastatin (Zocor) 20 mg PO HS [facility] Last Admin: 06/08/18 21:03 Dose: 20 mg Tamsulosin HCl (Flomax) 0.8 mg PO HS [facility] Last Admin: 06/08/18 21:03 Dose: 0.8 mg Tramadol HCl (Ultram) 50 mg PO QIDPRN PRN PRN Reason: Moderate Pain (4-6) Last Admin: 06/09/18 10:59 Dose: 50 mg
[2018-06-09] MEDS: Carvedilol 6.25 MG TAB PO SCH (17:45)
[2018-06-09] MEDS: Insulin Regular 300 UNITS/3 ML VIAL SC PRN (18:02)
[2018-06-09] MEDS: Simvastatin 20 MG TAB PO SCH (22:27)
[2018-06-09] MEDS: Tamsulosin HCl 0.4 MG CAP PO SCH (22:27)
[2018-06-10 05:19] LABS: #Basophils 0.1 thou/uL (0.0-0.2); #Eosinphils 0.2 thou/uL (0.0-0.7); #Lymphocytes 2.2 thou/uL (1.20-3.40); #Monocytes 0.6 thou/uL (0.11-0.59); #Neutrophils 3.2 thou/uL (1.40-6.50); %Basophils 0.8 % (0.0-1.0); %Eosinophils 3.1 % (0.0-10.0); %Monocytes 9.9 % (0.0-10.0); %Neutrophils 51.2 % (42.0-75.0); Hemoglobin 14.7 g/dL (14.0-18.0); Mean Corpuscular HGB CONC 33.3 g/dL (32.0-36.0); Mean Corpuscular Hemoglobin 30.3 pg (27.0-31.0); Mean Platelet Volume 7.3 fL (7.4-10.4); Platelet Count 175 thou/uL (130-400); RBC Distribution Width 13.2 % (11.5-14.5); Red Blood Cell (RBC) Count 4.86 mill/uL (4.70-6.10); White Blood Cell (WBC) Count 6.2 thou/uL (4.8-10.8)
[2018-06-10 05:36] LABS: Anion Gap 15 mmol/L (10-20); BUN (Urea Nitrogen) 16 mg/dL (8.4-25.7); Calc. Creatinine Clearance 114 mL/min (70-130); Calcium 8.7 mg/dL (7.8-10.44); Carbon Dioxide 21 mmol/L (23-31); Chloride 105 mmol/L (98-107); Estimated GFR-MDRD Greater than 90; Glucose 105 mg/dL (83-110); Sodium 137 mmol/L (136-145)
[2018-06-10] MEDS: Famotidine 20 MG TAB PO SCH ×2 (08:55→20:31)
[2018-06-10] MEDS: Divalproex Sodium 250 MG (DR) TAB PO SCH (08:55)
[2018-06-10] MEDS: Furosemide 20 MG TAB PO SCH (08:55)
[2018-06-10] MEDS: Glimepiride 2 MG TAB PO SCH (08:55)
[2018-06-10] MEDS: Amlodipine 10 MG TAB PO SCH (08:56)
[2018-06-10] MEDS: Cyanocobalamin (Vitamin B-12) 1,000 MCG TAB PO SCH (08:56)
[2018-06-10] MEDS: Midodrine HCl 5 MG TAB PO SCH ×2 (08:56→20:54)
[2018-06-10] MEDS: Carvedilol 6.25 MG TAB PO SCH ×2 (08:56→16:46)
[2018-06-10] MEDS: Multivit, Therapeutic 1 TAB PO SCH (08:56)
[2018-06-10] MEDS: Aspirin 325 mg Enteric Coated Tablet PO SCH (08:56)
[2018-06-10] MEDS: Enoxaparin Sodium 40 MG/0.4 ML SYRINGE SC SCH (08:57)
[2018-06-10] MEDS: Rivastigmine 9.5mg/24 Hour PATCH TOP SCH (08:57)
--- NOTE | 2018-06-10 12:55 | PDOC.PN ---
- Subjective Encounter Start Date: 06/10/18 Encounter Start Time: 12:53 Subjective: care discussed with at bedside. -: has started to return to since the code yesterday,but slow -: still minimally conversant - Objective Resuscitation Status: Resuscitation Status DNR:Do Not Resuscitate MAR Reviewed: Yes Vital Signs & Weight: Vital Signs (12 hours) Temp Pulse Pulse Resp BP BP BP 06/10/18 11:32 97.7 F 65 16 115/59 L 06/10/18 09:07 68 148/63 H 06/10/18 08:56 65 167/82 H 06/10/18 08:00 97.7 F 65 16 06/10/18 07:44 97.4 F L 65 16 167/82 H 06/10/18 03:14 97.3 F L 58 L 20 144/73 H Pulse Ox 06/10/18 11:32 96 06/10/18 09:07 06/10/18 08:56 06/10/18 08:00 99 06/10/18 07:44 96 06/10/18 03:14 96 Result Diagrams: 06/10/18 04:46 06/10/18 04:46 Additional Labs: Accuchecks 06/10/18 06/10/18 06/09/18 10:31 05:33 21:46 POC Glucose 133 H 116 H 135 H 06/09/18 16:57 POC Glucose 168 H Phys Exam - Physical Examination Constitutional: NAD awake but minimally verbally responsive.follows simple commands HEENT: PERRLA, moist MMs, sclera anicteric, oral pharynx no lesions Neck: no nodes, no JVD, supple, full ROM Respiratory: no wheezing, no rales, no rhonchi, clear to auscultation bilateral Cardiovascular: RRR, no significant murmur, no rub Gastrointestinal: soft, non-tender, no distention, positive bowel sounds Musculoskeletal: no edema, pulses present Neurological: normal sensation Psychiatric: normal affect Dx/Plan (1) Toxic metabolic encephalopathy Code(s): G92 - TOXIC ENCEPHALOPATHY Status: Acute Comment: mo Stroke on MRI (2) DM type 2 (diabetes mellitus, type 2) Status: Chronic Qualifiers: Diabetes mellitus termite inspector insulin use: without senior living use Diabetes mellitus complication status: with unspecified complications Qualified Code(s) : E11.8 - Type 2 diabetes mellitus with unspecified complications (3) Dementia Code(s): F03.90 - UNSPECIFIED DEMENTIA WITHOUT BEHAVIORAL DISTURBANCE Status: Chronic Qualifiers: Dementia type: unspecified type Dementia behavioral disturbance: without behavioral disturbance Qualified Code(s): F03.90 - Unspecified dementia without behavioral disturbance (4) Hypertension Code(s): I10 - ESSENTIAL (PRIMARY) HYPERTENSION Status: Chronic Qualifiers: Hypertension type: essential hypertension Qualified Code(s): I10 - Essential (primary) hypertension (5) Parkinson disease Code(s): G20 - PARKINSON'S DISEASE Status: Chronic - Plan PT/OT, respiratory therapy, incentive spirometry, out of bed/ambulate, DVT proph w/SCDs suspect progression of Parkinson's w masked Faces etc.? abscence Seizures -: no evidence of CVA,infection so far -: will re consult neurology for further recs -: cont supportive care.home meds as below -: HD stable * . Review of Systems - Review of Systems Other: can not be obtained due to encephalopathy - Medications/Allergies Allergies/Adverse Reactions: Allergies Allergy/AdvReac Type Severity Reaction Status Date / Time No Known Allergies Allergy Verified 03/17/16 21:25 Medications: Current Medications Acetaminophen (Tylenol) 650 mg PO Q4H PRN PRN Reason: Headache/Fever or Pain Al Hydroxide/Mg Hydroxide (Maalox) 30 ml PO Q6H PRN PRN Reason: Heartburn or Indigestion Amlodipine Besylate (Norvasc) 10 mg PO DAILY [facility] Last Admin: 06/10/18 08:56 Dose: 10 mg Aspirin (Ecotrin) 325 mg PO DAILY [facility] Last Admin: 06/10/18 08:56 Dose: 325 mg Benzonatate (Tessalon) 100 mg PO Q4H PRN PRN Reason: Cough Bisacodyl (Dulcolax) 10 mg PO DAILYPRN PRN PRN Reason: Constipation Bismuth Subsalicylate (Pepto Bismol) 2 tab PO Q1H PRN PRN Reason: Diarrhea/Loose Stools Calcium Carbonate (Tums) 1,000 mg PO Q4H PRN PRN Reason: Heartburn or Indigestion Carvedilol (Coreg) 6.25 mg PO BID[facility] Last Admin: 06/10/18 08:56 Dose: 6.25 mg Clonidine (Catapres) 0.1 mg PO Q4H PRN PRN Reason: Systolic BP > 160 Cyanocobalamin (Vitamin B-12) 1,000 mcg PO DAILY [facility] Last Admin: 06/10/18 08:56 Dose: 1,000 mcg Dextrose/Water (Dextrose 50%) 25 gm IVP PRN PRN PRN Reason: HYPOGLYCEMIA PROTOCOL Diphenoxylate HCl/Atropine (Lomotil) 1 tab PO QIDPRN PRN PRN Reason: Diarrhea/Loose Stools Divalproex Sodium (Depakote) 250 mg PO DAILY [facility] Last Admin: 06/10/18 08:55 Dose: 250 mg Enoxaparin Sodium (Lovenox) 40 mg SC 0900 [facility] Last Admin: 06/10/18 08:57 Dose: 40 mg Famotidine (Pepcid) 20 mg PO BID [facility] Last Admin: 06/10/18 08:55 Dose: 20 mg [facility] (Lasix) [facility] Last Admin: 06/10/18 08:55 Dose: 20 mg Glimepiride (Amaryl) 2 mg PO [facility] Last Admin: 06/10/18 08:55 Dose: 2 mg Glucagon (Glucagon) 1 mg IM PRN PRN PRN Reason: HYPOGLYCEMIA PROTOCOL Guaifenesin (Robitussin Sf) 200 mg PO Q4H PRN PRN Reason: Cough Hydralazine HCl (Apresoline) 10 mg SLOW IVP Q4H PRN PRN Reason: Systolic BP > 170 Dextrose/Water (D5w) 1,000 mls @ 0 mls/hr IV INF PRN; As Directed PRN Reason: HYPOGLYCEMIA PROTOCOL Levetiracetam 500 mg/ Device 100 mls @ 200 mls/hr IVPB BID [facility] Insulin Human Regular (Humulin R) 0 units SC .MILD SLIDING PRN; Protocol PRN Reason: MILD SLIDING SCALE Last Admin: 06/09/18 18:02 Dose: 2 unit Insulin Human Regular (Humulin R) 0 units SC .BEDTIME SLIDING SC PRN; Protocol PRN Reason: BEDTIME SLIDING SCALE Magnesium Hydroxide (Milk Of Magnesium) 30 ml PO DAILY PRN PRN Reason: Constipation Memantine (Namenda) 10 mg PO BID [facility] Last Admin: 06/10/18 08:55 Dose: 10 mg Midodrine (Proamatine) 2.5 mg PO BID [facility] Last Admin: 06/10/18 08:56 Dose: 2.5 mg Multivitamins (Theragran) 1 tab PO DAILY [facility] Last Admin: 06/10/18 08:56 Dose: 1 tab Ondansetron HCl (Zofran) 4 mg IVP Q6H PRN PRN Reason: Nausea/Vomiting Polyethylene Glycol (Miralax) 17 gm PO DAILY PRN PRN Reason: Constipation Rivastigmine (Exelon Patch) 9.5 mg TOP DAILY [facility] Last Admin: 06/10/18 08:57 Dose: 9.5 mg Senna (Senokot) 2 tab PO HSPRN PRN PRN Reason: Constipation Simvastatin (Zocor) 20 mg PO HS [facility] Last Admin: 06/09/18 22:27 Dose: 20 mg Tamsulosin HCl (Flomax) 0.8 mg PO [facility] Last Admin: 06/09/18 22:27 Dose: 0.8 mg Tramadol HCl (Ultram) 50 mg PO QIDPRN PRN PRN Reason: Moderate Pain (4-6) Last Admin: 06/09/18 10:59 Dose: 50 mg
--- NOTE | 2018-06-10 13:24 | PRG ---
DATE OF SERVICE: 06/10/2018 CHIEF COMPLAINT: Episodes of unresponsiveness. INTERVAL HISTORY: The patient was seen by Dr. Urias and a full consultation was placed in the chart. Per nursing staff, rapid response was called and the patient had a sudden decline in level of alertness and was mute and had a hazy look in his eyes. This lasted approximately 2 hours and then he returned back to baseline and this is his second event. One occurred prior to his admission. Current reports, medical MRI of the brain showed redemonstration of moderate chronic ischemic disease including lacunar infarct. LABORATORY WORKUP: White count 6.2, hemoglobin 14.7, hematocrit 44.3, platelets 175. PT 14, INR 1.1, PTT 34.5. Sodium 137, potassium 4, chloride 105 , bicarbonate 21, BUN 16, creatinine 0.75 and glucose 105. PHYSICAL EXAMINATION: VITAL SIGNS: Blood pressure is 115/59, temperature is 97.7, pulse is 65 and respiratory rate 16. GENERAL: The patient was alert, awake, eating lunch and he is oriented generally. CHEST: Clear vesicular breathing. CARDIOVASCULAR: S1, S2 heard, no murmurs. NEUROLOGIC: He is oriented to place and person. Knows this is June and stated this could be 06/09/2018, but did not know the year. Cranial nerves, no facial asymmetry. Normal extraocular movements. Motor exam: Bulk normal, tone normal, strength 5/5 in upper extremities and lower extremities. There is some limitation due to cognitive issues while performing full motor exam. IMPRESSION AND PLAN: Patient with episodes where he is almost passing out and then wakes up and he is not fully awake for at least [address] angiogram of the head and neck did not show any kind of aneurysms or hemodynamically significant stenosis and there is a focal area of 50% stenosis in the right ICA at C2 level which could be infarct and MRI is negative for acute stroke. 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 Possible reason for these events could be sleep attacks seen sometimes in patients who have dementia and Parkinson's and also he may be having subclinical seizures. RECOMMENDATIONS: Start him on Keppra 500 mg b.i.d. and I will check on him again tomorrow and I will also speak to the family. BRANDIN
[2018-06-10] MEDS: Acetaminophen 325 MG TAB PO PRN (20:31)
[2018-06-10] MEDS: Tamsulosin HCl 0.4 MG CAP PO SCH (20:31)
[2018-06-10] MEDS: Simvastatin 20 MG TAB PO SCH (20:31)
[2018-06-11] MEDS: Furosemide 20 MG TAB PO SCH (08:34)
[2018-06-11] MEDS: Multivit, Therapeutic 1 TAB PO SCH (08:34)
[2018-06-11] MEDS: Famotidine 20 MG TAB PO SCH ×2 (08:34→21:37)
[2018-06-11] MEDS: Aspirin 325 mg Enteric Coated Tablet PO SCH (08:34)
[2018-06-11] MEDS: Glimepiride 2 MG TAB PO SCH (08:34)
[2018-06-11] MEDS: Cyanocobalamin (Vitamin B-12) 1,000 MCG TAB PO SCH (08:34)
[2018-06-11] MEDS: Carvedilol 6.25 MG TAB PO SCH ×2 (08:34→17:28)
[2018-06-11] MEDS: Amlodipine 10 MG TAB PO SCH (08:35)
[2018-06-11] MEDS: Enoxaparin Sodium 40 MG/0.4 ML SYRINGE SC SCH (08:35)
[2018-06-11] MEDS: Midodrine HCl 5 MG TAB PO SCH ×2 (08:46→21:36)
[2018-06-11] MEDS: Divalproex Sodium 250 MG (DR) TAB PO SCH (08:48)
[2018-06-11] MEDS: Rivastigmine 9.5mg/24 Hour PATCH TOP SCH (08:48)
[2018-06-11] MEDS: Insulin Regular 300 UNITS/3 ML VIAL SC PRN (11:42)
--- NOTE | 2018-06-11 13:16 | PRG ---
DATE OF SERVICE: 06/11/2018 CHIEF COMPLAINT: Attacks of loss of consciousness. INTERVAL HISTORY: The patient was having an episode ____ episode when I walked into the room and the nursing staff tried to wake him up during this event. He seems to be mostly sleepy and looks angry when woken up. CURRENT LABORATORY WORKUP: No new labs since yesterday except for blood glucose is 186 and his MRI r esults were as noted yesterday and there is no acute ischemic event that was noted and he has moderat e chronic ischemic disease which is chronic, which has been present before even on the CT. CT angiog juliet did not show any critical stenosis. PHYSICAL EXAMINATION: VITAL SIGNS: Blood pressure 137/73, temperature 97.8, and pulse 56. NEUROLOGIC: The patient was sleeping when I walked in and when tried to wake him up, he did not wake up to touch or verbal stimulation, but woke up to deep painful stimulation and looked quite angry an d upset, but was nonverbal and then goes back to sleep. After a few minutes, having his eyes open he does not follow any commands. No facial asymmetry or twitching or any involuntary movements were no bryan during this event. IMPRESSION: The patient is a 73-year-old with history of dementia at baseline and he has had these s leep episodes not sure if he is awake through the night. Based on my observation and his history, th is seems to be more like a sleep attack versus seizure activity and is important to capture and he we nt on EEG with recording to be sure that there are no subclinical seizures considering his neurodegen erative condition. RECOMMENDATIONS: Please reconsult Dr. Urias tomorrow and I will put in an EEG request for tomorrow an d we will see if they can do event capture EEG rather than a routine EEG and nursing staff can notify the chemical production technician tomorrow when there is an event.
--- NOTE | 2018-06-11 13:21 | PDOC.PN ---
- Subjective Encounter Start Date: 06/11/18 Encounter Start Time: 13:20 Subjective: pt awake but does not talk or responds,does not move limbs - Objective Resuscitation Status: Resuscitation Status DNR:Do Not Resuscitate MAR Reviewed: Yes Vital Signs & Weight: Vital Signs (12 hours) Temp Pulse Pulse Pulse Resp BP BP 06/11/18 11:53 97.8 F 56 L 16 06/11/18 09:31 59 L 58 L 133/71 06/11/18 08:35 59 L 148/73 H 06/11/18 08:34 148/73 H 06/11/18 08:00 97.5 F L 59 L 16 06/11/18 07:41 97.5 F L 59 L 16 06/11/18 04:00 98.0 F 54 L 18 BP BP Pulse Ox 06/11/18 11:53 137/73 95 06/11/18 09:31 126/69 06/11/18 08:35 06/11/18 08:34 06/11/18 08:00 06/11/18 07:41 148/73 H 96 06/11/18 04:00 119/68 92 L I&O: 06/10/18 06/11/18 06/12/18 06:59 06:59 06:59 Intake Total 750 200 Balance 750 200 Result Diagrams: 06/10/18 04:46 06/10/18 04:46 Additional Labs: Accuchecks 06/11/18 06/11/18 06/10/18 10:58 06:00 20:28 POC Glucose 186 H 95 190 H 06/10/18 16:41 POC Glucose 127 H labs reviewed Phys Exam - Physical Examination Constitutional: NAD awake w eyes open on examination HEENT: PERRLA, moist MMs, sclera anicteric, oral pharynx no lesions Neck: no nodes, no JVD, supple, full ROM Respiratory: no wheezing, no rales, no rhonchi Cardiovascular: RRR, no significant murmur Gastrointestinal: soft, non-tender, no distention, positive bowel sounds Musculoskeletal: no edema, pulses present does not follow commands Dx/Plan (1) Toxic metabolic encephalopathy Code(s): G92 - TOXIC ENCEPHALOPATHY Status: Acute Comment: no Stroke on MRI (2) DM type 2 (diabetes mellitus, type 2) Status: Chronic Qualifiers: Diabetes mellitus fdc insulin use: without fdc use Diabetes mellitus complication status: with unspecified complications Qualified Code(s) : E11.8 - Type 2 diabetes mellitus with unspecified complications (3) Dementia Code(s): F03.90 - UNSPECIFIED DEMENTIA WITHOUT BEHAVIORAL DISTURBANCE Status: Chronic Qualifiers: Dementia type: unspecified type Dementia behavioral disturbance: without behavioral disturbance Qualified Code(s): F03.90 - Unspecified dementia without behavioral disturbance (4) Hypertension Code(s): I10 - ESSENTIAL (PRIMARY) HYPERTENSION Status: Chronic Qualifiers: Hypertension type: essential hypertension Qualified Code(s): I10 - Essential (primary) hypertension (5) Parkinson disease Code(s): G20 - PARKINSON'S DISEASE Status: Chronic - Plan PT/OT, perinatal social worker, DVT proph w/lovenox, DVT proph w/SCDs Started on Keppra BID for possibility of subclinical seizures. -: EEG tomorrow . -: follow neurology recs. -: BPbetter controlled w addition of Norvasc & increasing coreg -: HD stable.Diet w precuations.may need to start IVF if poor PO intake persis * . Review of Systems - Review of Systems Other: can not be obtained due to Encephalopathy - Medications/Allergies Allergies/Adverse Reactions: Allergies Allergy/AdvReac Type Severity Reaction Status Date / Time No Known Allergies Allergy Verified 03/17/16 21:25 Medications: Current Medications Acetaminophen (Tylenol) 650 mg PO Q4H PRN PRN Reason: Headache/Fever or Pain Last Admin: 06/10/18 20:31 Dose: 650 mg Al Hydroxide/Mg Hydroxide (Maalox) 30 ml PO Q6H PRN PRN Reason: Heartburn or Indigestion Amlodipine Besylate (Norvasc) 10 mg PO DAILY [facility] Last Admin: 06/11/18 08:35 Dose: 10 mg Aspirin (Ecotrin) 325 mg PO DAILY [facility] Last Admin: 06/11/18 08:34 Dose: 325 mg Benzonatate (Tessalon) 100 mg PO Q4H PRN PRN Reason: Cough Bisacodyl (Dulcolax) 10 mg PO DAILYPRN PRN PRN Reason: Constipation Bismuth Subsalicylate (Pepto Bismol) 2 tab PO Q1H PRN PRN Reason: Diarrhea/Loose Stools Calcium Carbonate (Tums) 1,000 mg PO Q4H PRN PRN Reason: Heartburn or Indigestion Carvedilol (Coreg) 6.25 mg PO BID-[facility] Last Admin: 06/11/18 08:34 Dose: 6.25 mg Clonidine (Catapres) 0.1 mg PO Q4H PRN PRN Reason: Systolic BP > 160 Cyanocobalamin (Vitamin B-12) 1,000 mcg PO DAILY [facility] Last Admin: 06/11/18 08:34 Dose: 1,000 mcg Dextrose/Water (Dextrose 50%) 25 gm IVP PRN PRN PRN Reason: HYPOGLYCEMIA PROTOCOL Diphenoxylate HCl/Atropine (Lomotil) 1 tab PO QIDPRN PRN PRN Reason: Diarrhea/Loose Stools Divalproex Sodium (Depakote) 250 mg PO DAILY [facility] Last Admin: 06/11/18 08:48 Dose: 250 mg Enoxaparin Sodium (Lovenox) 40 mg SC 0900 [facility] Last Admin: 06/11/18 08:35 Dose: 40 mg Famotidine (Pepcid) 20 mg PO BID [facility] Last Admin: 06/11/18 08:34 Dose: 20 mg Furosemide (Lasix) 20 mg PO [facility] Last Admin: 06/11/18 08:34 Dose: 20 mg Glimepiride (Amaryl) 2 mg PO [facility] Last Admin: 06/11/18 08:34 Dose: 2 mg Glucagon (Glucagon) 1 mg IM PRN PRN PRN Reason: HYPOGLYCEMIA PROTOCOL Guaifenesin (Robitussin Sf) 200 mg PO Q4H PRN PRN Reason: Cough Hydralazine HCl (Apresoline) 10 mg SLOW IVP Q4H PRN PRN Reason: Systolic BP > 170 Dextrose/Water (D5w) 1,000 mls @ 0 mls/hr IV INF PRN; As Directed PRN Reason: HYPOGLYCEMIA PROTOCOL Levetiracetam 500 mg/ Device 100 mls @ 200 mls/hr IVPB BID [facility] Last Admin: 06/11/18 08:35 Dose: 100 mls Insulin Human Regular (Humulin R) 0 units SC .MILD SLIDING PRN; Protocol PRN Reason: MILD SLIDING SCALE Last Admin: 06/11/18 11:42 Dose: 2 unit Insulin Human Regular (Humulin R) 0 units SC .BEDTIME SLIDING SC PRN; Protocol PRN Reason: BEDTIME SLIDING SCALE Magnesium Hydroxide (Milk Of Magnesium) 30 ml PO DAILY PRN PRN Reason: Constipation Memantine (Namenda) 10 mg PO BID [facility] Last Admin: 06/11/18 08:34 Dose: 10 mg Midodrine (Proamatine) 2.5 mg PO BID [facility] Last Admin: 06/11/18 08:46 Dose: 2.5 mg Multivitamins (Theragran) 1 tab PO DAILY [facility] Last Admin: 06/11/18 08:34 Dose: 1 tab Ondansetron HCl (Zofran) 4 mg IVP Q6H PRN PRN Reason: Nausea/Vomiting Polyethylene Glycol (Miralax) 17 gm PO DAILY PRN PRN Reason: Constipation Rivastigmine (Exelon Patch) 9.5 mg TOP DAILY [facility] Last Admin: 06/11/18 08:48 Dose: 9.5 mg Senna (Senokot) 2 tab PO HSPRN PRN PRN Reason: Constipation Simvastatin (Zocor) 20 mg PO [facility] Last Admin: 06/10/18 20:31 Dose: 20 mg Tamsulosin HCl (Flomax) 0.8 mg PO [facility] Last Admin: 06/10/18 20:31 Dose: 0.8 mg Tramadol HCl (Ultram) 50 mg PO QIDPRN PRN PRN Reason: Moderate Pain (4-6) Last Admin: 06/09/18 10:59 Dose: 50 mg
[2018-06-11] MEDS: Acetaminophen 325 MG TAB PO PRN (21:36)
[2018-06-11] MEDS: Simvastatin 20 MG TAB PO SCH (21:37)
[2018-06-11] MEDS: Tamsulosin HCl 0.4 MG CAP PO SCH (21:37)
--- NOTE | 2018-06-11 23:16 | EKG ---
Test Reason : POST CODE GREEN Blood Pressure : / mmHG Vent. Rate : 068 BPM Atrial Rate : 068 BPM P-R Int : 176 ms QRS Dur : 082 ms QT Int : 412 ms P-R-T Axes : 044 041 041 degrees QTc Int : 438 ms Normal sinus rhythm with sinus arrhythmia Low voltage QRS Borderline ECG When compared with ECG of 07-JUN-2018 14:17, (Unconfirmed) Previous ECG has undetermined rhythm, needs review Confirmed by Jaylen SHARMA ([id number]) on 06/11/2018 11:16:27 PM Referred By: YESENIA Confirmed By:Jaylen SHARMA
[2018-06-12 04:43] LABS: Anion Gap 13 mmol/L (10-20); BUN (Urea Nitrogen) 14 mg/dL (8.4-25.7); Calc. Creatinine Clearance 112 mL/min (70-130); Calcium 8.7 mg/dL (7.8-10.44); Carbon Dioxide 22 mmol/L (23-31); Chloride 105 mmol/L (98-107); Estimated GFR-MDRD Greater than 90; Glucose 103 mg/dL (83-110); Magnesium 2.2 mg/dL (1.6-2.6); Potassium 3.9 mmol/L (3.5-5.1); Sodium 136 mmol/L (136-145)
[2018-06-12] MEDS: Glimepiride 2 MG TAB PO SCH (10:03)
[2018-06-12] MEDS: Aspirin 325 mg Enteric Coated Tablet PO SCH (10:03)
[2018-06-12] MEDS: Carvedilol 6.25 MG TAB PO SCH ×2 (10:03→16:35)
[2018-06-12] MEDS: Midodrine HCl 5 MG TAB PO SCH ×2 (10:04→20:39)
[2018-06-12] MEDS: Amlodipine 10 MG TAB PO SCH (10:04)
[2018-06-12] MEDS: Furosemide 20 MG TAB PO SCH (10:04)
[2018-06-12] MEDS: Cyanocobalamin (Vitamin B-12) 1,000 MCG TAB PO SCH (10:05)
[2018-06-12] MEDS: Multivit, Therapeutic 1 TAB PO SCH (10:05)
[2018-06-12] MEDS: Rivastigmine 9.5mg/24 Hour PATCH TOP SCH (10:05)
[2018-06-12] MEDS: Enoxaparin Sodium 40 MG/0.4 ML SYRINGE SC SCH (10:05)
[2018-06-12] MEDS: Divalproex Sodium 250 MG (DR) TAB PO SCH (10:05)
[2018-06-12] MEDS: Famotidine 20 MG TAB PO SCH ×2 (10:05→20:40)
[2018-06-12] MEDS: Insulin Regular 300 UNITS/3 ML VIAL SC PRN (11:33)
--- NOTE | 2018-06-12 19:14 | PDOC.PN ---
- Subjective Encounter Start Date: 06/12/18 Encounter Start Time: 11:20 Pt seen for followup re: acute encephalopathy. Pt not opening eyes or talking, unable to complete ROS. - Objective Resuscitation Status: Resuscitation Status DNR:Do Not Resuscitate Vital Signs & Weight: Vital Signs (12 hours) Temp Pulse Resp BP BP Pulse Ox 06/12/18 16:35 117/66 06/12/18 16:00 97.6 F 61 16 117/66 95 06/12/18 12:00 98.7 F 60 16 141/78 H 98 06/12/18 10:04 55 L 153/68 H 06/12/18 10:03 153/68 H 06/12/18 08:05 98.7 F 60 16 97 06/12/18 08:00 97.7 F 55 L 16 153/68 H 97 I&O: 06/11/18 06/12/18 06/13/18 06:59 06:59 06:59 Intake Total 750 200 Balance 750 200 Result Diagrams: 06/10/18 04:46 06/12/18 03:53 Additional Labs: Accuchecks 06/12/18 06/12/18 06/12/18 16:59 10:46 05:44 POC Glucose 135 H 177 H 98 06/11/18 21:28 POC Glucose 149 H EKG Reviewed by me: Yes (Tele: NSR) Phys Exam - Physical Examination Constitutional: NAD HEENT: moist MMs, sclera anicteric Respiratory: clear to auscultation bilateral Cardiovascular: RRR Gastrointestinal: soft No facial droop, DTR 2+ Deviation from normal: Unable to assess Dx/Plan (1) Acute encephalopathy Code(s): G93.40 - ENCEPHALOPATHY, UNSPECIFIED Status: Acute Comment: pt having EEG today (2) DM type 2 (diabetes mellitus, type 2) Status: Chronic Qualifiers: Diabetes mellitus instrument lens generator insulin use: without chcf use Diabetes mellitus complication status: with unspecified complications Qualified Code(s) : E11.8 - Type 2 diabetes mellitus with unspecified complications Comment: inue accuchecks, insulin sliding scale (3) Hypertension Code(s): I10 - ESSENTIAL (PRIMARY) HYPERTENSION Status: Chronic Qualifiers: Hypertension type: essential hypertension Qualified Code(s): I10 - Essential (primary) hypertension Comment: monitor vital signs, titrate antihypertensives as needed (4) Dementia Code(s): F03.90 - UNSPECIFIED DEMENTIA WITHOUT BEHAVIORAL DISTURBANCE Status: Chronic Qualifiers: Dementia type: unspecified type Dementia behavioral disturbance: without behavioral disturbance Qualified Code(s): F03.90 - Unspecified dementia without behavioral disturbance (5) Parkinson disease Code(s): G20 - PARKINSON'S DISEASE Status: Chronic - Plan plan discussed w/ family * . Review of Systems - Medications/Allergies Allergies/Adverse Reactions: Allergies Allergy/AdvReac Type Severity Reaction Status Date / Time No Known Allergies Allergy Verified 03/17/16 21:25 Medications: Current Medications Acetaminophen (Tylenol) 650 mg PO Q4H PRN PRN Reason: Headache/Fever or Pain Last Admin: 06/11/18 21:36 Dose: 650 mg Al Hydroxide/Mg Hydroxide (Maalox) 30 ml PO Q6H PRN PRN Reason: Heartburn or Indigestion Amlodipine Besylate (Norvasc) 10 mg PO DAILY [facility] Last Admin: 06/12/18 10:04 Dose: 10 mg Aspirin (Ecotrin) 325 mg PO DAILY [facility] Last Admin: 06/12/18 10:03 Dose: 325 mg Benzonatate (Tessalon) 100 mg PO Q4H PRN PRN Reason: Cough Bisacodyl (Dulcolax) 10 mg PO DAILYPRN PRN PRN Reason: Constipation Bismuth Subsalicylate (Pepto Bismol) 2 tab PO Q1H PRN PRN Reason: Diarrhea/Loose Stools Calcium Carbonate (Tums) 1,000 mg PO Q4H PRN PRN Reason: Heartburn or Indigestion Carvedilol (Coreg) 6.25 mg PO BID-[facility] Last Admin: 06/12/18 16:35 Dose: 6.25 mg Clonidine (Catapres) 0.1 mg PO Q4H PRN PRN Reason: Systolic BP > 160 Cyanocobalamin (Vitamin B-12) 1,000 mcg PO DAILY [facility] Last Admin: 06/12/18 10:05 Dose: 1,000 mcg Dextrose/Water (Dextrose 50%) 25 gm IVP PRN PRN PRN Reason: HYPOGLYCEMIA PROTOCOL Diphenoxylate HCl/Atropine (Lomotil) 1 tab PO QIDPRN PRN PRN Reason: Diarrhea/Loose Stools Divalproex Sodium (Depakote) 250 mg PO DAILY [facility] Last Admin: 06/12/18 10:05 Dose: 250 mg Enoxaparin Sodium (Lovenox) 40 mg SC 0900 [facility] Last Admin: 06/12/18 10:05 Dose: 40 mg Famotidine (Pepcid) 20 mg PO BID [facility] Last Admin: 06/12/18 10:05 Dose: 20 mg Furosemide (Lasix) 20 mg PO QAM [facility] Last Admin: 06/12/18 10:04 Dose: 20 mg Glimepiride (Amaryl) 2 mg PO QA-[facility] Last Admin: 06/12/18 10:03 Dose: 2 mg Glucagon (Glucagon) 1 mg IM PRN PRN PRN Reason: HYPOGLYCEMIA PROTOCOL Guaifenesin (Robitussin Sf) 200 mg PO Q4H PRN PRN Reason: Cough Hydralazine HCl (Apresoline) 10 mg SLOW IVP Q4H PRN PRN Reason: Systolic BP > 170 Dextrose/Water (D5w) 1,000 mls @ 0 mls/hr IV INF PRN; As Directed PRN Reason: HYPOGLYCEMIA PROTOCOL Levetiracetam 500 mg/ Device 100 mls @ 200 mls/hr IVPB BID [facility] Last Admin: 06/12/18 10:05 Dose: 100 mls Insulin Human Regular (Humulin R) 0 units SC .MILD SLIDING PRN; Protocol PRN Reason: MILD SLIDING SCALE Last Admin: 06/12/18 11:33 Dose: 2 unit Insulin Human Regular (Humulin R) 0 units SC .BEDTIME SLIDING SC PRN; Protocol PRN Reason: BEDTIME SLIDING SCALE Magnesium Hydroxide (Milk Of Magnesium) 30 ml PO DAILY PRN PRN Reason: Constipation Memantine (Namenda) 10 mg PO BID [facility] Last Admin: 06/12/18 10:03 Dose: 10 mg Midodrine (Proamatine) 2.5 mg PO BID [facility] Last Admin: 06/12/18 10:04 Dose: 2.5 mg Multivitamins (Theragran) 1 tab PO DAILY [facility] Last Admin: 06/12/18 10:05 Dose: 1 tab Ondansetron HCl (Zofran) 4 mg IVP Q6H PRN PRN Reason: Nausea/Vomiting Polyethylene Glycol (Miralax) 17 gm PO DAILY PRN PRN Reason: Constipation Rivastigmine (Exelon Patch) 9.5 mg TOP DAILY [facility] Last Admin: 06/12/18 10:05 Dose: 9.5 mg Senna (Senokot) 2 tab PO HSPRN PRN PRN Reason: Constipation Simvastatin (Zocor) 20 mg PO HS [facility] Last Admin: 06/11/18 21:37 Dose: 20 mg Tamsulosin HCl (Flomax) 0.8 mg PO [facility] Last Admin: 06/11/18 21:37 Dose: 0.8 mg Tramadol HCl (Ultram) 50 mg PO QIDPRN PRN PRN Reason: Moderate Pain (4-6) Last Admin: 06/09/18 10:59 Dose: 50 mg
[2018-06-12] MEDS: Simvastatin 20 MG TAB PO SCH (20:39)
[2018-06-12] MEDS: Tamsulosin HCl 0.4 MG CAP PO SCH (20:40)
--- NOTE | 2018-06-12 21:34 | PRG ---
DATE OF SERVICE: 06/12/2018 SUBJECTIVE: Mr. Arnett had a few more episodes of becoming unresponsive since my last visit. Apparen tly, he becomes unresponsive and is very hard to be awaken; when he does wake up; he is extremely pk tated. was present at bedside who reports that he has no prior history of seizure disorder and he has not had these episodes in the past. He is currently living in a residential and he has episo ann where the residential staff finds him unresponsive. They tried to perform sternal rub to wake h im up, but he does not respond and he is unresponsive for several minutes and after he regained consc iousness, after he becomes alert, he is extremely agitated and having a hard time expressing himself. He also gets weak on his right side with these episodes. He has had MRI brain which showed no acut e intracranial abnormality and there was a CT angiogram of the head and neck done which had shown no critical stenosis. He has not had any spell on this morning. PHYSICAL EXAMINATION: VITAL SIGNS: Blood pressure of 117/66, pulse of 61, temperature 97.6, respirations of 16, O2 sats of 95% on room air. GENERAL: Well-developed, well-nourished male in no apparent distress. RESPIRATORY: Clear to auscultation bilaterally. CARDIOVASCULAR: Regular rate and rhythm. NEUROLOGICAL: Patient is awake, alert, but disoriented to place and time. He is able to follow some simple commands. Cranial nerves: Pupils are 3 mm and reactive. Visual newsome are full to threat. External muscles are intact. No nystagmus noted. Face is symmetric. Motor exam showed normal tone and bulk with 5/5 strength in both upper and lower extremities. IMAGING: EEG was reviewed, which showed diffuse slowing without any epileptiform discharges . IMPRESSION: 1. Episodes of altered level of responsiveness, likely seizures with postictal state. 2. Dementia. PLAN: Mr. Arnett is a pleasant 73-year-old male with episodes of passing out and becoming u nresponsive followed by confusion, aphasia and right-sided weakness. Based on the description of spe lls, these are likely complex partial seizure with postictal Anuel's paralysis. I have reviewed his E EG, which showed diffuse slowing without any epileptiform discharges . At this time, I would re commend increasing the dose of his Keppra to 1000 mg twice daily. If patient remains asymptomatic ov ernight, patient can be discharged to residential and follow up as an outpatient in my clinic.
[2018-06-13] MEDS ORDERED: levETIRAcetam In NaCl (Iso-Os) 1,000 MG in Premix Bag 1 BAG IVPB SCH (09:00)
[2018-06-13] MEDS: Furosemide 20 MG TAB PO SCH (09:27)
[2018-06-13] MEDS: Midodrine HCl 5 MG TAB PO SCH (09:27)
[2018-06-13] MEDS: Amlodipine 10 MG TAB PO SCH (09:28)
[2018-06-13] MEDS: Glimepiride 2 MG TAB PO SCH (09:28)
[2018-06-13] MEDS: Famotidine 20 MG TAB PO SCH (09:28)
[2018-06-13] MEDS: Cyanocobalamin (Vitamin B-12) 1,000 MCG TAB PO SCH (09:28)
[2018-06-13] MEDS: Carvedilol 6.25 MG TAB PO SCH (09:28)
[2018-06-13] MEDS: Multivit, Therapeutic 1 TAB PO SCH (09:28)
[2018-06-13] MEDS: Divalproex Sodium 250 MG (DR) TAB PO SCH (09:29)
[2018-06-13] MEDS: Rivastigmine 9.5mg/24 Hour PATCH TOP SCH (09:29)
[2018-06-13] MEDS: Aspirin 325 mg Enteric Coated Tablet PO SCH (09:29)
[2018-06-13] MEDS: Enoxaparin Sodium 40 MG/0.4 ML SYRINGE SC SCH (09:29)
[2018-06-13 11:44] VITALS: TEMP 98
[2018-06-13 13:16] VITALS: BP 163/89
--- NOTE | 2018-06-13 13:36 | DIS ---
DATE OF ADMISSION: 06/07/2018 DATE OF DISCHARGE: 06/13/2018 PRIMARY CARE PROVIDER: Bernardino Phillips M.D. DISCHARGE DIAGNOSES: 1. Acute encephalopathy. 2. 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 CONDITION OF PATIENT ON THE DAY OF DISCHARGE: Stable. I assessed Mr. Arnett on the day of discharge. He is able to tell me his name. He denies any complaints. Vital signs are stable. S1 and S2 are heard, regular. Lungs are clear to auscultation bilaterally. DISCHARGE MEDICATIONS: In addition to his preadmission home medications as dictated by Dr. Trey tatum history and physical note dated 06/07/2018, he is being discharged home on Keppra 1000 mg twice suzan ly. CONSULTATION DURING THIS HOSPITALIZATION: Neurology, Dr. Fabienne Urias. HOSPITAL COURSE: Mr. Arnett is a pleasant 73-year-old gentleman who was admitted to [facility] on 06/07/2018 for acute encephalopathy. He also had stroke workup done. Please ref er to Dr. Yang's history and physical note dated 06/07/2018 for further details. MRI of the brain on 06/08/2018 did not show any acute intracranial abnormality. He had moderate chronic ischemic dis ease including cavitary lacunar infarctions. He was seen by Neurology Service. He was started on Ke ppra. EEG showed diffuse slowing without any epileptiform discharges. Neurology Service diagnosed l ikely complex partial seizure with postictal Anuel's paralysis. He improved with Keppra. Keppra dose was increased to 1000 mg twice daily on the day of discharge. H e should follow up with Neurology Service as outpatient. During this hospitalization, he had cholest violeta 99, HDL cholesterol 46 and LDL cholesterol 40. His creatinine was normal. Hemoglobin was ricky l as well. Many thanks for allowing me to participate in your patient's care. Please feel free to contact me wi th any questions or concerns. DISCHARGE DESTINATION: [facility], from where patient was admitted to the hospital. TOTAL AMOUNT OF TIME SPENT COORDINATING THIS DISCHARGE: 33 minutes.
--- NOTE | 2018-06-15 09:49 | EEG ---
Referring Physician: DR. ALMAS DALE EEG # [id number] TEST TYPE: ROUTINE PORTABLE INPATIENT DATE OF EE06/12/18 REASON FOR EEG: ALTERED MENTAL STATUS EEG DESCRIPTION: This is a 21 channel digital EEG recording. Electrodes are placed using the international 10-20 electrode placement system. The background rhythm is predominately 4-5 hertz, low to medium amplitude Theta rhythm. There are periods of drowsiness present. PHOTIC STIMULATION: Showed no effect. HYPERVENTILATION: Was not done. There are no epileptiform discharges, sharp transients or asymmetry noted. EKG LEAD: Shows 60 beats per minute, regular rhythm. IMPRESSION: THIS IS AN ABNORMAL EEG. IT SHOWS MILD, NONSPECIFIC CEREBRAL DYSFUNCTION. HOWEVER, THERE ARE NO EPILEPTIFORM DISCHARGES,, SHARP TRANSIENTS OR ASYMMETRY NOTED. THIS CAN BE PRESENT IN PATIENTS WITH TOXIC-METABOLIC ENCEPHALOPATHY WELL DEMENTIA AND POST-ICTAL STATE. PLEASE CORRELATE THESE FINDINGS CLINICALLY. Network Technical Analyst: MICHOACANO District Associate Judge: EEG.ROSIE GHOTRA
== END 2018-06-13 15:23 | DRG 100 ==
LOC: ERS 11:43 → 2SE 16:07
PROVIDERS: ADMIT Internal Medicine; ATTEND Internal Medicine
DX: G40.209 Localization-related (focal) (partial) symptomatic epilepsy and epileptic syndromes with complex partial seizures, not intractable, without status epilepticus (principal); G93.40 Encephalopathy, unspecified; R47.01 Aphasia; G83.84 Todd's paralysis (postepileptic); R29.810 Facial weakness; G20 Parkinson's disease; F02.80 Dementia in other diseases classified elsewhere, unspecified severity, without behavioral disturbance, psychotic disturbance, mood disturbance, and anxiety; E11.9 Type 2 diabetes mellitus without complications; K21.9 Gastro-esophageal reflux disease without esophagitis; I10 Essential (primary) hypertension; N40.0 Benign prostatic hyperplasia without lower urinary tract symptoms; Z74.01 Bed confinement status; Z99.3 Dependence on wheelchair; I65.21 Occlusion and stenosis of right carotid artery; Z66 Do not resuscitate; J44.9 Chronic obstructive pulmonary disease, unspecified; Z79.84 Long term (current) use of oral hypoglycemic drugs; Z87.891 Personal history of nicotine dependence; Z86.73 Personal history of transient ischemic attack (TIA), and cerebral infarction without residual deficits; Z82.3 Family history of stroke
CPT/HCPCS: 36415; 36416; 70450; 70496; 70498; 70553; 80048; 80053; 80061; 80306; 81003; 82550; 82553; 83735; 84484; 85025; 85610; 85730; 93005; 93010; 95816; 95819; G8978-GP-CL; G8979-GP-CJ; G8987-GO-CM; G8988-GO-CK; J0360; J1650; J1953